=== PATIENT | female | born 1985 | race Caucasian/White ===

== ENCOUNTER 2023-05-26 08:01 | Outpatient (AMB) | payer OTHER, SELFPAY ==
[2023-05-26 08:18] VITALS: BP 90/60; PULSE 81; TEMP 36.8; O2SAT 98; BMI 28.7
--- NOTE | 2023-05-26 08:18 | MHC.OFFWIV ---
Intake Vital Signs 05/26/23 08:18 Height 5 ft 3 in Weight 162 lb BMI 28.7 BP 90/60 Blood Pressure Location Lt brachial Position Sitting Pulse 81 Pulse Source Pulse Oximeter Temp 98.2 F Temp Source Oral Pulse Oximetry (%) 98 Oxygen Delivery Method Room Air Intake Visit Reasons: EST/chills fatigue(lobby masked) Intake Note: Pt is here today c/i chills, fever, bodyaches and sorethroat x2 days Upper Marker Name: vape Allergies scallops Adverse Reaction (Verified 05/26/23 08:52) [facility] Med[facility] List - Last Reconciled 05/26/23 by Eric Amin MD cariprazine (Vraylar) 3 mg PO DAILY clonazepam mg PO divalproex 250 mg PO DAILY lamotrigine 200 mg PO DAILY prazosin 1 mg PO BEDTIME propranolol 10 mg PO BID trazodone 100 mg PO BEDTIME Do you need a note to return to daycare/school/sports/work: Yes HPI EST/chills fatigue(lobby masked) HPI Details Patient presents for a sick visit. Reporting symptoms of sinus congestion, sore throat and difficulty swallowing. Low-grade fever. No family member is sick. No recent travel. Patient reports symptoms of malaise and fatigue. Physical Exam Vital Signs: Last Vital Signs Temp 98.2 F 05/26/23 08:18 Pulse 81 05/26/23 08:18 BP 90/60 05/26/23 08:18 Pulse Ox 98 05/26/23 08:18 Oxygen Delivery Method Room Air 05/26/23 08:18 BMI result Body Mass Index 28.7 Const General: cooperative and healthy appearing Nutritional Appearance: well nourished Orientation/consciousness: patient oriented x3 Limitations: no limitations HEENT Head: Yes normal to inspection Eyes General: appearance normal, both eyes and all related structures Neck Neck: Yes normal visual inspection Chest Chest palpation & inspection: normal palpation of entire chest wall Resp Effort & Inspection: normal respiratory effort Neuro General: patient oriented x3 Results AMB Rapid Strep AMB Rapid Strep Negative Last Edit by Red Hernandez CMA on 05/26/23 08:34 Results Reviewed Results Reviewed: Laboratory Last Values Strep Scn [facility] Clinic Negative 05/26/23 08:26 Assessment & Plan Assessment & Plan (1) Upper respiratory tract infection: Code(s): J06.9 - Acute upper respiratory infection, unspecified Plan: Self-limiting illness. No antibiotics needed. Strep test was negative. Will await COVID testing. Orders: Orders AMB Rapid Strep Screen Today Z13.9 - Encounter for screening, unspecified Coding Level of Care Code Est Pt Level 3 (67593) Diagnoses Upper respiratory tract infection J06.9
== END 2023-05-26 09:07 | disposition home or self-care (01) ==
PROVIDERS: Visit Provider Internal Medicine
DX: J06.9 Acute upper respiratory infection, unspecified (principal); J02.9 Acute pharyngitis, unspecified
CPT/HCPCS: 87880; 99213

== ENCOUNTER 2023-05-26 13:54 | Outpatient (REF) | payer OTHER, SELFPAY ==
[2023-05-26 14:51] LABS: Influenza A PCR NEGATIVE (Negative); Influenza B PCR NEGATIVE (Negative); Resp Syncy Virus RNA Qual PCR NEGATIVE (Negative); SARS COV2 PCR INHOUSE POSITIVE (Negative)
== END 2023-05-26 13:55 | disposition home or self-care (01) ==
LOC: HO.LNP 13:54
PROVIDERS: Visit Provider Internal Medicine
DX: Z11.52 Encounter for screening for COVID-19 (principal); R43.9 Unspecified disturbances of smell and taste; Z20.822 Contact with and (suspected) exposure to COVID-19
CPT/HCPCS: 0241U

== ENCOUNTER 2023-10-06 08:52 | Outpatient (AMB) | payer OTHER, SELFPAY ==
[2023-10-06 09:11] VITALS: BP 112/78; PULSE 65; TEMP 36.6; O2SAT 99; BMI 27.6
--- NOTE | 2023-10-06 09:11 | AM.OFFWIN_ITS ---
Intake Vital Signs 10/06/23 09:11 Height 5 ft 3 in Weight 156 lb BMI 27.6 BP 112/78 Blood Pressure Location Lt brachial Position Sitting Pulse 65 Pulse Source Pulse Oximeter Temp 97.8 F Temp Source Oral Pulse Oximetry (%) 99 Oxygen Delivery Method Room Air Intake Visit Reasons: EP Head Cold, Ear/head ache, nausea (masked) Intake Note: Pt presents to the office today for a sx of a head cold, ear pain,headache, and nausea that started 6 days ago. She states she developed a fever last night as well. Allergies scallops Adverse Reaction (Verified 10/06/23 10:20) [facility] Medication List - Last Reconciled 10/06/23 by DONNY Mello albuterol sulfate 90 mcg/actuation 2 puffs inhalation Q6H PRN azithromycin For 250 mg dose pack: take 500 mg today (day 1), then 250 mg for 4 days (days 2-5) PO cariprazine (Vraylar) 3 mg PO DAILY clonazepam mg PO divalproex 250 mg PO DAILY lamotrigine 200 mg PO DAILY prazosin 1 mg PO BEDTIME propranolol 10 mg PO BID trazodone 100 mg PO BEDTIME Do you need a note to return to daycare/school/sports/work: Yes Return to daycare/school/sports/work/other note: work HPI HPI Comments History of Present Illness Details Patient is a 37-year-old female in for sick visit. Patient states that for the past 6 days she has developed upper respiratory symptoms including headache, cough, ear fullness, sinus tenderness, sore throat, chills. Patient has tried some rvmv-enm-vqhiaep medications with little relief. Denies chest pain, shortness a breath, nausea, vomiting, diarrhea, dizziness. Patient has many sick contacts [facility] Social History (Updated 10/06/23 @ 09:18 by Ora Oseguera MA) Alcohol intake: current Alcohol intake frequency: a few times a month e-Cigarette/Vaping Use: Currently Using Use of substances other than those prescribed or required for medical reasons: No Review of Systems Const All systems reviewed & are unremarkable except as noted in HPI and below Physical Exam Vital Signs: Last Vital Signs Temp 97.8 F 10/06/23 09:11 Pulse 65 10/06/23 09:11 BP 112/78 10/06/23 09:11 Pulse Ox 99 10/06/23 09:11 Oxygen Delivery Method Room Air 10/06/23 09:11 BMI result Body Mass Index 27.6 Vital signs reviewed and stable Const Other: Appearance: Alert.? Oriented X3.? No acute distress.? Head: Normocephalic, atraumatic, no step-offs or deformities Eyes: Pupils equal, round and reactive to light.? ENT: Pharynx erythema. +Sinus tenderness. TM intact and pearly holcomb. Neck: Normal inspection.? Neck supple.? CVS: Normal heart rate and rhythm.? Pulses normal.? Respiratory: No respiratory distress.? Breath sounds normal.? Neuro: Oriented X 3.? No motor deficit.? No sensory deficit. CN 2-12 intact Assessment & Plan Assessment & Plan (1) Sinusitis: Comment: Patient had upper respiratory swab. Will give azithromycin and refill patient's albuterol inhaler at her request Code(s): J32.9 - Chronic sinusitis, unspecified Qualifiers: Chronicity: acute Recurrence: non-recurrent Sinusitis location: unspecified location Qualified Code(s): J01.90 - Acute sinusitis, unspecified Plan: Take your medications as prescribed. If you were prescribed antibiotics today, it is important that you take your medication to their entirety, do not skip any doses, do not finish them early. Follow-up with your primary care provider this week. Return to the emergency department with new or worsening symptoms. Such as fevers, chills, chest pain, shortness of breath, nausea, vomiting, dizziness, headache, vision changes, lethargy In case of emergency call 911 Plan Follow-up with PCP Orders: Orders SARS-CoV2/FLU/RSV Today J06.9 - Acute upper respiratory infection, unspecified Medications: New albuterol sulfate 90 mcg/actuation 2 puffs inhalation Q6H PRN 6.7 grams 0RF shortness of breath or wheezing azithromycin For 250 mg dose pack: take 500 mg today (day 1), then 250 mg for 4 days (days 2-5) PO 6 tabs 0RF Coding Level of Care Code Est Pt Level 3 (21389) Diagnoses Acute non-recurrent sinusitis, unspecified location J01.90 Chronicity: acute Recurrence: non-recurrent Sinusitis location: unspecified location Time Spent (min) 22
== END 2023-10-06 11:30 | disposition home or self-care (01) ==
PROVIDERS: Visit Provider Nurse Practitioner Primary Care
DX: J01.90 Acute sinusitis, unspecified (principal)
CPT/HCPCS: 99213

== ENCOUNTER 2023-10-06 11:43 | Outpatient (REF) | payer OTHER, SELFPAY ==
[2023-10-06 13:05] LABS: Influenza A PCR NEGATIVE (Negative); Influenza B PCR NEGATIVE (Negative); Resp Syncy Virus RNA Qual PCR NEGATIVE (Negative); SARS COV2 PCR INHOUSE NEGATIVE (Negative)
== END 2023-10-06 11:44 | disposition home or self-care (01) ==
LOC: HO.HMGCLNP 11:43
PROVIDERS: Visit Provider Nurse Practitioner Primary Care
DX: J06.9 Acute upper respiratory infection, unspecified (principal)
CPT/HCPCS: 0241U

== ENCOUNTER 2023-12-16 08:22 | Outpatient (AMB) | payer OTHER, SELFPAY ==
[2023-12-16 08:24] VITALS: BP 112/60; PULSE 71; TEMP 36.8; O2SAT 99; BMI 26.4
--- NOTE | 2023-12-16 08:24 | AM.OFFWIN_ITS ---
Intake Vital Signs 12/16/23 08:24 Height 5 ft 3 in Weight 149 lb BMI 26.4 BP 112/60 Blood Pressure Location Rt brachial Position Sitting Pulse 71 Pulse Source Pulse Oximeter Temp 98.3 F Temp Source Oral Pulse Oximetry (%) 99 Oxygen Delivery Method Room Air Intake Visit Reasons: EP ?Strep Throat, Ears clogged and body ache Intake Note: pt here c/o stuffy nose, blocked ears, body aches and sore throat. No fever Patient Tobacco Use Status: Never used Tobacco Allergies scallops Adverse Reaction (Verified 12/16/23 08:33) wilts Do you need a note to return to daycare/school/sports/work: No HPI HPI Comments History of Present Illness Details Patient is a 38-year-old female with no significant past medical history complaining clogged ears, body aches, nasal congestion and is questioning whether she has strep throat. Patient states she had a double ear infection recently but was prescribed a Z-Adan she followed up with her primary is that she still had fluid in her ears and she felt like she did. She states she took some ibuprofen this morning which is helped her throat pain she is also taking daily Maria Teresa. She denies any nausea vomiting diarrhea chest pain or shortness of breath. [facility] Social History (Updated 10/06/23 @ 09:18 by Ora Oseguera CMA) Alcohol intake: current Alcohol intake frequency: a few times a month Patient Tobacco Use Status: Never used Tobacco e-Cigarette/Vaping Use: Currently Using Review of Systems Const All systems reviewed & are unremarkable except as noted in HPI and below Physical Exam Vital Signs: Last Vital Signs Temp 98.3 F 12/16/23 08:24 Pulse 71 12/16/23 08:24 BP 112/60 12/16/23 08:24 Pulse Ox 99 12/16/23 08:24 Oxygen Delivery Method Room Air 12/16/23 08:24 BMI result Body Mass Index 26.4 Const General: cooperative, healthy appearing, comfortable and no acute distress Orientation/consciousness: patient oriented x3 Limitations: no limitations HEENT Head: Yes normal to inspection Ears: external ears normal and TM's normal bilaterally General nose exam: Normal external nose present, Normal nares present and No nasal discharge present Face and sinus: Yes normal facial exam and Yes sinus tenderness Mouth: Normal oral and palatal mucosa present and moist mucous membranes Throat: Yes posterior oropharynx normal Eyes General: appearance normal, both eyes and all related structures Neck Neck: Yes normal visual inspection Resp Effort & Inspection: normal respiratory effort, able to speak in complete sentences, Actively coughing, no respiratory distress, not tachypneic, no tripod positioning and no use of accessory muscles Auscultation: clear to auscultation bilaterally Cardio Rate: regular rate Rhythm: regular rhythm Heart sounds: normal S1 and S2 Skin General skin exam: no rashes or lesions noted Neuro General: patient oriented x3 Extrem General: Yes normal to inspection and Yes no clubbing, cyanosis or edema Results AMB Rapid Strep AMB Rapid Strep Negative Last Edit by Oskar Moore CMA on 12/16/23 08:44 Assessment & Plan Assessment & Plan (1) Sinusitis: Comment: Patient had upper respiratory swab. Will give azithromycin and refill patient's albuterol inhaler at her request Code(s): J32.9 - Chronic sinusitis, unspecified Qualifiers: Sinusitis location: unspecified location Chronicity: acute Recurrence: non-recurrent Qualified Code(s): J01.90 - Acute sinusitis, unspecified Plan: VSS, strep negative, advised pt to treat symptoms with [id number]-vfr-cjvguhl medication as most sinus infections are viral. Plan see above Coding Level of Care Code Est Pt Level 2 (65595) Diagnoses Acute non-recurrent sinusitis, unspecified location J01.90 Sinusitis location: unspecified location Chronicity: acute Recurrence: non-recurrent
== END 2023-12-16 09:18 | disposition home or self-care (01) ==
PROVIDERS: PCP Internal Medicine; Visit Provider Physician Assistant
DX: J01.90 Acute sinusitis, unspecified (principal); Z13.9 Encounter for screening, unspecified
CPT/HCPCS: 87880; 99213

== ENCOUNTER 2024-05-05 08:10 | Outpatient (REF) | payer OTHER, SELFPAY ==
[2024-05-05 12:43] LABS: Adenovirus PCR Not Detected (Not Detect.); Bordetella parapertussis PCR Not Detected (Not Detect.); Bordetella pertussis PCR Not Detected (Not Detect.); Chlamydia pneumoniae PCR Not Detected (Not Detect.); Coronavirus 229E PCR Not Detected (Not Detect.); Coronavirus HKU1 PCR Not Detected (Not Detect.); Coronavirus NL63 PCR Not Detected (Not Detect.); Coronavirus OC43 PCR Not Detected (Not Detect.); Human metapneumovirus PCR Not Detected (Not Detect.); Influenza A PCR Not Detected (Not Detect.); Influenza B PCR Not Detected (Not Detect.); Mycoplasma pneumoniae PCR Not Detected (Not Detect.); Parainfluenza 1 PCR Not Detected (Not Detect.); Parainfluenza 2 PCR Not Detected (Not Detect.); Parainfluenza 3 PCR Not Detected (Not Detect.); Parainfluenza 4 PCR Not Detected (Not Detect.); RSV PCR Not Detected (Not Detect.); Rhino/Enterovirus PCR Not Detected (Not Detect.)
[2024-05-05 12:45] LABS: SARS-CoV-2 PCR Not Detected (Not Detect.)
== END 2024-05-05 08:11 | disposition home or self-care (01) ==
LOC: HO.LAB 08:10
PROVIDERS: PCP Internal Medicine; Visit Provider Physician Assistant
DX: J06.9 Acute upper respiratory infection, unspecified (principal); R05.9 Cough, unspecified
CPT/HCPCS: 87633; 99202

== ENCOUNTER 2024-05-05 08:10 | Outpatient (AMB) | payer OTHER, SELFPAY ==
[2024-05-05 08:15] VITALS: BP 112/78; PULSE 62; TEMP 36.8; O2SAT 98; BMI 24.1
--- NOTE | 2024-05-05 08:15 | AM.OFFWIN_ITS ---
Intake Vital Signs 05/05/24 08:15 Height 5 ft 3 in Weight 136 lb BMI 24.1 BP 112/78 Blood Pressure Location Rt brachial Position Sitting Pulse 62 Pulse Source Pulse Oximeter Temp 98.2 F Temp Source Oral Pulse Oximetry (%) 98 Oxygen Delivery Method Room Air Intake Visit Reasons: EP-fever, body ache, sore throat, sob Intake Note: Patient here for fever, body aches and SOB that has been present for a few days. Patient Tobacco Use Status: Never used Tobacco Allergies scallops Adverse Reaction (Verified 12/16/23 08:33) [facility] HPI Comments History of Present Illness Details Patient is a 38-year-old female complaining of fever with a T-max of 101.3 degrees F, body aches, shortness of breath, sore throat, fatigue and headaches. She tells me she does not have a history of asthma but she was prescribed an inhaler in the past for when she had shortness of breath but she can not find it. She tells me that the apartment they were living in for the past year had black mold and she has been sick on and off with breathing problems for the last year. They just moved out of the apartment 10 days ago. She tells me she also has a history of bipolar disorder so she is unable to take a lot of medications to treat her symptoms so she has just been resting. She denies any sick contacts at home. She did tell me she tested for COVID at home and it was negative. [facility] Social History (Updated 10/06/23 @ 09:18 by Ora Oseguera [facility]) Alcohol intake: current Alcohol intake frequency: a few times a month Patient Tobacco Use Status: Never used Tobacco e-Cigarette/Vaping Use: Currently Using Review of Systems Const All systems reviewed & are unremarkable except as noted in HPI and below Physical Exam Vital Signs: Last Vital Signs Temp 98.2 F 05/05/24 08:15 Pulse 62 05/05/24 08:15 BP 112/78 05/05/24 08:15 Pulse Ox 98 05/05/24 08:15 Oxygen Delivery Method Room Air 05/05/24 08:15 BMI result Body Mass Index 24.1 Const General: cooperative, healthy appearing, comfortable and no acute distress Orientation/consciousness: patient oriented x3 Limitations: no limitations HEENT Head: Yes normal to inspection Ears: hearing grossly normal bilaterally, external ears normal and TM's normal bilaterally General nose exam: Normal external nose present, Normal nares present and No nasal discharge present Face and sinus: Yes normal facial exam and Yes sinuses nontender Mouth: Normal oral and palatal mucosa present and moist mucous membranes Throat: Yes tonsils normal, Yes uvula midline and Yes posterior oropharynx abnormal (Erythema) Eyes General: appearance normal, both eyes and all related structures Neck Neck: Yes normal visual inspection Resp Effort & Inspection: normal respiratory effort, able to speak in complete sentences, no respiratory distress, not tachypneic, no tripod positioning and no use of accessory muscles Auscultation: clear to auscultation bilaterally Cardio Rate: regular rate Rhythm: regular rhythm Heart sounds: normal S1 and S2 Skin General skin exam: no rashes or lesions noted Neuro General: patient oriented x3 Extrem General: Yes normal to inspection and Yes no clubbing, cyanosis or edema Assessment & Plan Assessment & Plan (1) URI (upper respiratory infection): Code(s): J06.9 - Acute upper respiratory infection, unspecified Qualifiers: URI type: unspecified URI Qualified Code(s): J06.9 - Acute upper respiratory infection, unspecified Plan: Vital signs are stable and patient well-appearing, however with her history of living in an apartment with black mold for 1 year, and repetitive breathing issues, I will get a chest x-ray. I also did a respiratory pathogen panel. Refilled Ventolin inhaler. If viral panel is negative, we will likely prescribe an antibiotic. Plan See above Orders: Orders XR chest 2V Today R05.9 - Cough, unspecified Resp Pathogen Panel - [facility] Today J06.9 - Acute upper respiratory infection, unspecified Medications: New albuterol sulfate 90 mcg/actuation (Ventolin HFA) 2 puffs inhalation Q4-6H 8.5 grams 0RF shortness of breath or wheezing Coding Level of Care Code New Pt Level 4 (27953) Diagnoses Upper respiratory tract infection, unspecified type J06.9 URI type: unspecified URI
== END 2024-05-05 09:07 | disposition home or self-care (01) ==
PROVIDERS: PCP Internal Medicine; Visit Provider Physician Assistant
DX: J06.9 Acute upper respiratory infection, unspecified (principal)

== ENCOUNTER 2024-05-05 08:46 | Outpatient (REF) | payer OTHER, SELFPAY ==
--- NOTE | ~2024-05-05 | XR_ITS ---
EXAMINATION: XR CHEST CLINICAL INFORMATION: Cough, unspecified COMPARISON: None available. TECHNIQUE: PA and lateral views of the chest were obtained. FINDINGS: The lungs are well expanded. No focal consolidation, effusion, edema, or pneumothorax. The cardiomediastinal silhouette is within normal limits for technique. No acute osseous abnormality. XR/XR chest 2V IMPRESSION: No acute pulmonary disease. Electronically signed by: Christina Ferrera DO 05/05/2024 12:08 PM EDT
== END 2024-05-05 08:47 | disposition home or self-care (01) ==
LOC: HO.HMGCX 08:46
PROVIDERS: PCP Internal Medicine; Visit Provider Physician Assistant
DX: R05.9 Cough, unspecified (principal)
CPT/HCPCS: 71046

== ENCOUNTER 2024-07-25 08:04 | Outpatient (AMB) | payer OTHER, SELFPAY ==
[2024-07-25 08:06] VITALS: BP 110/60; PULSE 75; TEMP 37.6; O2SAT 99; BMI 25.0
--- NOTE | 2024-07-25 08:06 | MHC.OFFWIV ---
Intake Vital Signs 07/25/24 08:06 Height 5 ft 3 in Weight 141 lb BMI 25.0 BP 110/60 Blood Pressure Location Rt brachial Position Sitting Pulse 75 Pulse Source Pulse Oximeter Temp 99.6 F Temp Source Oral Pulse Oximetry (%) 99 Oxygen Delivery Method Room Air Intake Visit Reasons: EP Sore throat, cold symptoms () Intake Note: Pt is here today c/o S/T and cold sx's: Pt is 6 weeks into her Patient Tobacco Use Status: Never used Tobacco Allergies scallops Adverse Reaction (Verified 07/25/24 08:07) [facility] HPI Comments History of Present Illness Details Patient is a 38-year-old female complaining of 2 days of a sore throat, minor cough and chest congestion. She states she just found out she was and has had a lot of nausea and feeling tired. She has been using cough drops and aspirin daily. She denies any sick contacts. 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 She denies a history of asthma. She denies any shortness of breath, wheezing or fevers. [facility] Social History (Updated 10/06/23 @ 09:18 by Ora Oseguera CMA) Alcohol intake: current Alcohol intake frequency: a few times a month Patient Tobacco Use Status: Never used Tobacco e-Cigarette/Vaping Use: Currently Using Review of Systems Const All systems reviewed & are unremarkable except as noted in HPI and below Physical Exam Vital Signs: Last Vital Signs Temp 99.6 F 07/25/24 08:06 Pulse 75 07/25/24 08:06 BP 110/60 07/25/24 08:06 Pulse Ox 99 07/25/24 08:06 Oxygen Delivery Method Room Air 07/25/24 08:06 BMI result Body Mass Index 25.0 Results AMB Rapid Strep AMB Rapid Strep Negative Last Edit by Lenore Jessica CMA on 07/25/24 08:22 Assessment & Plan Assessment & Plan (1) URI (upper respiratory infection): Code(s): J06.9 - Acute upper respiratory infection, unspecified Qualifiers: URI type: unspecified URI Qualified Code(s): J06.9 - Acute upper respiratory infection, unspecified Plan: Vital signs are stable, patient is well-appearing and physical exam is unremarkable. Rapid strep was negative in the office and no exudates on exam. Did test for flu COVID and RSV. Recommended mfrb-skf-pxnskin medications that are safe for as well as rest and hydration. Orders: Orders SARS-CoV2/FLU/RSV Today J06.9 - Acute upper respiratory infection, unspecified Coding Level of Care Code New Pt Level 3 (31710) Diagnoses Upper respiratory tract infection, unspecified type J06.9 URI type: unspecified URI
== END 2024-07-25 08:55 | disposition home or self-care (01) ==
PROVIDERS: PCP Internal Medicine; Visit Provider Physician Assistant
DX: J06.9 Acute upper respiratory infection, unspecified (principal)

== ENCOUNTER 2024-07-25 08:04 | Outpatient (REF) | payer OTHER, SELFPAY ==
[2024-07-25 11:13] LABS: Influenza A PCR NEGATIVE (Negative); Influenza B PCR NEGATIVE (Negative); Resp Syncy Virus RNA Qual PCR NEGATIVE (Negative); SARS COV2 PCR INHOUSE NEGATIVE (Negative)
== END 2024-07-25 08:05 | disposition home or self-care (01) ==
LOC: HO.LAB 08:04
PROVIDERS: PCP Internal Medicine; Visit Provider Physician Assistant
DX: J06.9 Acute upper respiratory infection, unspecified (principal)
CPT/HCPCS: 0241U; 87880; 99212

== ENCOUNTER 2024-09-12 15:47 | Outpatient (AMB) | payer OTHER, SELFPAY ==
[2024-09-12 15:52] VITALS: BP 130/80; PULSE 86; TEMP 36.7; O2SAT 97; BMI 26.7
--- NOTE | 2024-09-12 15:52 | AM.OFFWIN_ITS ---
Intake Vital Signs 09/12/24 15:52 Height 5 ft 3 in Weight 151 lb BMI 26.7 BP 130/80 Blood Pressure Location Rt brachial Position Sitting Pulse 86 Pulse Source Pulse Oximeter Temp 98.1 F Temp Source Oral Pulse Oximetry (%) 97 Oxygen Delivery Method Room Air Intake Visit Reasons: EP cold/flu symtoms Intake Note: Patient here for congestion, headache, chills that has been present since Thursday. Pt is 13 weeks . Patient Tobacco Use Status: Never used Tobacco Allergies scallops Adverse Reaction (Verified 09/12/24 16:00) wilts Do you need a note to return to daycare/school/sports/work: No HPI HPI Comments History of Present Illness Details 38 y/o female patient who presents to [facility] walk in clinic with c/o URI symptoms since Thursday. Pt is 13 weeks . 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 [facility] Medical History (Updated 09/12/24 @ 16:07 by Senait York NP) Acute respiratory disease Social History (Updated 10/06/23 @ 09:18 by Ora Oseguera CMA) Alcohol intake: current Alcohol intake frequency: a few times a month Patient Tobacco Use Status: Never used Tobacco e-Cigarette/Vaping Use: Currently Using Review of Systems Const All systems reviewed & are unremarkable except as noted in HPI and below Physical Exam Vital Signs: Last Vital Signs Temp 98.1 F 09/12/24 15:52 Pulse 86 09/12/24 15:52 BP 130/80 09/12/24 15:52 Pulse Ox 97 09/12/24 15:52 Oxygen Delivery Method Room Air 09/12/24 15:52 BMI result Body Mass Index 26.7 Const General: cooperative and no acute distress Orientation/consciousness: patient oriented x3 HEENT Head: Yes normocephalic Ears: external ears normal and TM abnormal with fluid behind the TM bilateral General nose exam: No nasal discharge present Face and sinus: Yes sinuses nontender Mouth: moist mucous membranes Throat: Yes uvula midline Resp Effort & Inspection: normal respiratory effort and able to speak in complete sentences Auscultation: clear to auscultation bilaterally, no crackles, no rales, no rhonchi and no wheezes Cardio Heart sounds: S1 normal heart sound present and S2 normal heart sound present Neuro General: patient oriented x3 Assessment & Plan Assessment & Plan (1) Acute respiratory disease: Code(s): J06.9 - Acute upper respiratory infection, unspecified Plan: Ordered SARs OTC cold/Flu remedies Rest and hydrate well Acetaminophen for pain relief. Orders: Orders SARS-CoV2/FLU/RSV Today J06.9 - Acute upper respiratory infection, unspecified Coding Level of Care Code Est Pt Level 4 (83655) Diagnoses Acute respiratory disease J06.9 Time Spent (min) 20
--- OUTSIDE RECORDS SUMMARY | 2024-09-12 18:33 | XMS_ITS ---
Author Organization [facility] [place] [address] Care Team Providers Care Clinic [facility] Associate Name Role Phone Elsy Cabral Primary Care Provider Bryce Ribeiro [phone] Medications Medication SIG (Take, Route, Frequency, Duration) Notes Start Date End Date Status clonazePAM 1 MG 1/2 tablet in the morning, and 1 tablet midday, and 1 tablet in the evening Orally As directed for 90 days Going up in dose. 04/24/2023 Active Encounters Encounter Location Date Provider Diagnosis [facility] [address] [place] [id number] 04/24/2023 Bryce Ribeiro Bipolar 1 disorder F31.9 Assessments Encounter Date Diagnosis (ICD Code) Assessment Notes Treatment Notes Treatment Clinical Notes Section Notes 04/24/2023 Bipolar 1 disorder (ICD-10 - F31.9) Plan Of Treatment Medication Medication Name Sig Start Date Stop Date Notes clonazePAM 1 MG 1/2 tablet in the mo rning, and 1 tablet midday, and 1 tablet in the evening Orally As directed for 90 days 04/24/2023 Going up in dose. Progress Notes * Krysta NELSON EDOB: [id number] (37 yo F)Acc No.[id number]:04/24/2023 Patient:?Krysta Nelson :1985???Age:37 Y???Sex:Female Address:[address] [id number] * Refills? Refill clonazePAM Tablet, 1 MG, Orally, 270, 1/2 tablet in the morning, and 1 tablet midday, and 1 tablet in the evening, As directed, 90 days, Refills=0 * true * Date:? Generated for Vamshi damico/Roc/Claritaitting on:?09/12/2024 06:33 PM EST
--- OUTSIDE RECORDS SUMMARY | 2024-09-12 18:33 | XMS_ITS | Encounter Summary ---
Author Organization [facility] [place] [address] Care Team Providers Care Masticator Name Role Phone Catherine Jamison MD Primary Care Provider [phone] Encounter Details Date Type Department Care Team ([facility] st Contact Info) Description 09/01/2024 Telephone Obstetrics and Gynecology - [place] [address] [place] [id number] Marium Jackson MA Social History Tobacco Use Types Packs/Day Years Used Date Smoking Tobacco: Former Cigarettes Smokeless Tobacco: Never Alcohol Use Standard Drinks/Week Comments Not Currently 0 (1 standard drink = 0.6 oz pur e alcohol) Comments Yes Sex and Gender Information Value Date Recorded Sex Assigned at Not on file Legal Sex Female 3:35 AM EST Gender Identity Not on file Sexual Orientation Not on file 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 Patient alreadly know the sex of the baby. * Marium Jackson MA - 09/01/2024 3:43 PM EST ----- Message from Jenny Hodge CNM sent at 09/01/2024 1:53 PM EST ----- Pls call pt to let her know that her Panorama was low-risk. If she would like to know the baby's sex, it is male documented in this encounter Plan of Treatment Upcoming Encounters Date Type Department Care Team (Late st Contact Info) Description 10/27/2024 11:00 AM EDT Office Visit Adult Medicine [address] [phone] Catherine Jamison MD [address] [place] [address] documented as of this encounter Visit Diagnoses Not on filedocumented in this encounter Care Teams Masticator Relationship Specialty Start Date End Date Catherine Jamison MD [address] [place] [phone] PCP - General Internal Medicine 07/15/24 documented as of this encounter
--- OUTSIDE RECORDS SUMMARY | 2024-09-12 18:33 | XMS_ITS | Clinical Summary ---
Author Organization [facility] [address] [facility] lding Address [address] [place] [address] Phone Care Team Providers Care Surface Miner Name Role Phone Catherine Jamison MD Primary Care Provider [phone] Allergies Active Allergy Reactions Criticality Noted Date Comments Food Allergy Formula Anaphylaxis High 06/17/2023 Scallops, Medications busPIRone (BUSPAR) 10 mg tablet Take 1 Tablet by mouth at bedtime. Active cariprazine (Vraylar) 3 mg capsule Take by mouth. Activ e clonazePAM (KlonoPIN) 1 mg tablet TAKE 1/2 TABLET BY MOUTH IN THE MORNING AND 1 TABLET IN THE AFTERNOON AND AT BEDTIME 4 Active divalproex (DEPAKOTE) [address] tablet Take 1 tablet (250 mg total) by mouth at bedtime. 4 Active lamoTRIgine (LaMICtal) 200 mg tablet Take 1 tablet (200 mg total) by mouth 1 (one) time each day. Active prazosin (MINIPRESS) 1 mg capsule Take 1 Capsule by mouth at bedtime. Active traZODone (DESYREL) 100 mg tablet Take 1 Tablet by mouth at bedtime. Active albuterol HFA (Ventolin HFA) 90 mcg/actuation inhaler INHALE 2 PUFFS EVERY 6 HOURS NEEDED FOR SHORTNESS OF BREATH OR WHEEZING 4 Active omeprazole (PriLOSEC) [address] capsule Take 1 capsule (40 mg total) by mouth 1 (one) time each day. 8 Active hydrOXYzine HCL (ATARAX) 25 mg tablet Take 1 tablet (25 mg total) by mouth 2 (two) times a day. 4 Active hydrOXYzine pamoate (VISTARIL) 100 mg capsule Take 1 capsule (100 mg total) by mouth. at bedtime 4 Active lurasidone (LATUDA) 80 mg tablet Take 0.5 tablets (40 mg total) by mouth daily. Active clonazePAM (KlonoPIN) 0.5 mg tablet Take 1 tablet (0.5 mg total) by mouth 3 times daily. Max Daily Amount: 1.5 mg Active lamoTRIgine (LaMICtal) 150 mg tablet Take 200 mg by mouth 1 (one) time each day. Active aspirin 81 mg EC tabletIndication s:Encounter for supervision of normal first in first trimester Take 2 tablets (162 mg total) by mouth 1 (one) time each day. 180 each 1 5 01/19/20 25 Active Active Problems Problem Noted Date Diagnosed Date GBS bacteriuria 08/25/2024 Overview (08/25/2024): <1K in IP urine culture IP prohylaxis Bipolar 1 disorder 06/23/2024 Overview (06/23/2024): behavioral health through [facility], [place]; Edie Lyons (psych) GERD (gastroesophageal reflux disease) IBS (irritable bowel syndrome) 06/23/2024 PUD (peptic ulcer disease) 06/23/2024 Generalized anxiety disorder 09/16/2023 Pelvic pain 08/07/2020 Overview (06/23/2024): Last Assessment & Plan: Discussed with patient that we should repeat US to evaluate for recurrent cyst. No evidence of acute torsion today, but could be intermittent again. Given warning signs. Could also just be Mittelschmerz or some scar tissue from previous surgery. I encouraged her to consider a combined OPC or higher dose progestin to suppress cyst formation. She has no contraindications after review of her history. She was informed of low, but increased risk of VTE. She was open to this option. She will follow up in 3 months and we will discuss US results when available. Ovarian torsion 03/20/2020 Overview (06/23/2024): 02/2020- s/p left ovarian cystectomy Eppsteiner, large ~ 6 cm follicular cyst and evidence of vascular congestion c/w torsion Acne 10/31/2019 Migraines 04/27/2018 Atypical squamous cell vega es of undetermined significance (ASCUS) on cervical cytology with positive high risk human papilloma virus (HPV) 12/28/2017 Overview (07/15/2024): Pos 16; colpo December 2017 History of drug abuse 10/07/2017 Resolved Problems Problem Noted Date Diagnosed Date Resolved Date Primigravida of advanced mat ernal age in first trimester 07/22/2024 09/05/2024 Overview (07/22/2024): ASA 162 mg daily at 12w through delivery Referral for NIPT if desired Detailed US 3rd trimester growth US if maternal age 40 or greater Weekly NST at 36 weeks Offer delivery at 39 weeks if maternal age 40 or greater Marijuana smoker 07/22/2024 09/05/2024 Overview (07/22/2024): Stopped with + preg test-aware of UDS Encounter for supervision of normal first in first trimester 07/20/2024 09/05/2024 Overview (09/01/2024): 1. [facility] site: [facility]: [address] [place] [address] ([phone]) 2. Delivery site: [facility] 3. Mobile Mommas: No 4. Dating criteria: LMP 5. Blood type: O+ 6. Genetic screening: Panorama: low-risk male Horizon: neg Nuchal: Ordered Survey: MSAFP: 6. GBS: Date: 7. FOB name: Enrique 8. Plans A. Epidural or other pain management - B. Labor support identified - C. Tdap - Date: Flu - Date: D. Breast or Bottle feed: Bottle feeding E. Baby's name - F. Circumcision - 9. Hospital Course: Encounters Date Type Department Care Team Description 09/05/2024 Telephone Obstetrics [place] [address] Melinda Hodge CNM transfer care 09/01/2024 Telephone Obstetrics and Gynecology [address] [phone] [place] 08/12/2024 Telephone Obstetrics and Gynecology [address] [phone] Melinda Hodge CNM Problem 08/09/2024 Telephone Obstetrics and Gynecology - [address] [phone] Melinda Hodge CNM 08/03/2024 Telephone Obstetrics and Gynecology [address] [phone] Melinda Hodge CNM Transitional Care Management; Incoming Call 07/22/2024 3:00 PM EST Clinical Support Obstetrics and [address] [phone] Encounter for supervision of normal first in first trimester (Primary Dx); Primigravida of advanced maternal age in first trimester; Marijuana smoker 07/15/2024 1:00 PM EST Clinical Support Obstetrics and [address] [phone] Irregular periods (Primary Dx) 07/08/2024 Telephone Adult Medicine [address] [phone] Catherine Jamison MD lab request from Last 3 Months Immunizations Name Administration Dates Next Due Pfizer SARS-CoV-2 COVID-19, mRNA, LNP-S, preservative free 07/25/2021,12/22/2020,12/01/2020 Tdap Tetanus diptheria acell ular pertussis (Boostrix; Adacel) 7yo and older 03/25/2021 Surgical History Surgery Date Site/Laterality Comments COLONOSCOPY PROCEDURE: HISTORICAL COLONOSCOPY OTHER SURGICAL HISTORY PROCEDURE: VT ESOPHAGOSCOPY FLEXIBLE TRANSORAL DIAGNOSTIC WISDOM TOOTH EXTRACTION PROCEDURE: HISTORICAL WISDOM TEETH EXTRACTION UPPER GASTROINTESTINAL ENDOSCOPY 12/08/2018 PROCEDURE: UPPER GI ENDOSCOPY/EXAM; COMMENT: negative, biopsy pending OVARIAN CYST REMOVAL 02/2020 PROCEDURE: VT OVARIAN CYSTECTOMY UNI/BI; COMMENT: laparoscopic, Eppsteiner, large follicular cyst and torsion Medical History Medical History Date Comments GERD (gastroesophageal reflu x disease) DX:GERD (gastroesophageal re flux disease) PUD (peptic ulcer disease) DX:PU D (peptic ulcer disease) IBS (irritable bowel syndrome) D X:IBS (irritable bowel syndrome) Bipolar 1 disorder (CMS/HCC) DX: Bipolar 1 disorder (HCC); COMMENT: behavioral health through [facility]; Edie Lyons (psych) Migraines 04/27/2018 DX:Migraines Family History Medical History Relation Name Comments COPD Aunt maternal Alcohol abuse Father Alcohol/Drug Father DARBY disease Father Bipolar disorder Father's side Heart attack Maternal Grandmother Obesity Maternal Grandmother Alcohol abuse Mother Other: anxiety Mother Coronary artery disease Mother's side COPD Paternal Grandfather Lung cancer Paternal Grandfather Heart attack Uncle maternal Breast cancer Neg Hx Colon cancer Neg Hx Ovarian cancer Neg Hx Pancreatic cancer Neg Hx Prostate cancer Neg Hx Uterine cancer Neg Hx Relation Name Status Comments Aunt Brother Alive Father Alive Father's side Maternal Grandmother (Age 57) Mother Alive Mother's side Paternal Grandfather Alive Paternal Grandmother Alive Sister Alive Uncle Social History Tobacco Use Types Packs/Day Years Used Date Smoking Tobacco: Former Cigarettes Smokeless Tobacco: Never Tobacco Cessation:Counseling Given: Not Answered Alcohol Use Standard Drinks/Week Comments Not Currently 0 (1 standard drink = 0.6 oz pur e alcohol) Comments No Sex and Gender Information Value Date Recorded Sex Assigned at Not on file Legal Sex Female 3:35 AM EST Gender Identity Not on file Sexual Orientation Not on file 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 on file Not on file Not on file Obstetrics History Para Term AB IAB SAB Ectopic Multiple Livin g Live Births 1 Date Outcome GA Total Labor Labor/2nd/3rd Weight Sex Type Anes PTL Frieda A1 A5 Name Clin Last Filed Vital Signs Vital Sign Reading Time Taken Comments Blood Pressure 98/74 04/05/2024 2:08 PM EDT Pulse 78 04/05/2024 2:08 PM EDT Temperature - - Respiratory Rate - - Oxygen Saturation - - Inhaled Oxygen Concentration - - Weight 64 kg (141 lb) 07/22/2024 2:49 PM EST Height 160 cm (5' 3 ) 07/22/2024 2:49 PM EST Body Mass Index 24.98 07/22/2024 2:49 PM EST Plan of Treatment Upcoming Encounters Date Type Department Care Team (Late st Contact Info) Description 10/27/2024 11:00 AM EDT Office Visit Adult Medicine [facility] [place] [address] [place] [address] Catherine Jamison MD [address] [place] [phone] Health Maintenance Due Date Last Done Comments Hepatitis B Vaccines (1 of 3 - 19+ 3-dose series) 11/21/2006 Depression Screening 06/15/2022 Social Influencers of Health Screening 06/15/2022 Cervical Cancer Screening: HPV 04/02/2026 04/02/2021 Cholesterol Screening (Lipid Panel) 04/05/2029 04/05/2024, 04/05/2024 DTaP,Tdap,and Td Vaccines (2 - Td or Tdap) 03/25/2031 03/25/2021 Influenza Vaccine Completed 04/06/2024 COVID-19 Vaccine Completed 04/24/2024, , 12/22/2020, Additional history exists HIV Screening Completed 08/22/2024 Hepatitis C Screening Completed 08/22/2024 HIB Vaccines Aged Out No longer eligi ble based on patient's age to complete this topic HPV Vaccines Aged Out No longer eligi ble based on patient's age to complete this topic Hepatitis A Vaccines Aged Out No long er eligible based on patient's age to complete this topic IPV Vaccines Aged Out No longer eligi ble based on patient's age to complete this topic MMR Vaccines Aged Out No longer eligi ble based on patient's age to complete this topic Meningococcal ACWY Vaccine Aged Out N o longer eligible based on patient's age to complete this topic Meningococcal B Vacine Aged Out No lo nger eligible based on patient's age to complete this topic Pneumococcal Vaccine: Pediatrics (0 to 5 Years) and At-Risk Patients (6 to 64 Years) Aged Out No longer eligible based on patient's age to complete this topic RSV Immunization Patients Under 20 months Aged Out No longer eligible based on patient's age to complete this topic Varicella Vaccines Aged Out No longer eligible based on patient's age to complete this topic Procedures Procedure Name Priority Date/Time Associated Diagnosis Comments HORIZON 14, DAYRON Routine 08/31/2024 3: 51 PM EST HORIZON 14, DAYRON Routine 08/31/2024 9: 10 AM EST PANORAMA TEST Routine 11:58 AM EST CBC WITH AUTO DIFFERENTIAL Routine 08/22/2024 10:35 AM EST Encounter for supervision of normal first in first trimester VENIPUNCTURE CHARGE Routine 08/22/2024 1 0:35 AM EST Encounter of female for testing for genetic disease carrier status for procreative management Supervision of elderly primigravida in first trimester HEPATITIS B SURFACE ANTIGEN WITH CONFIRMATION Routine 08/22/2024 10:35 AM EST Encounter for supervision of normal first in first trimester VARICELLA ZOSTER ANTIBODY IGG Routine 08/22/2024 10:35 AM EST Encounter for supervision of normal first in first trimester TREPONEMA PALLIDUM ANTIBODY WITH REFLEX TO RPR AND PARTICLE AGGLUTINATION Routine 08/22/2024 10:35 AM EST Encounter for supervision of normal first in first trimester RUBELLA ANTIBODY IGG Routine 08/22/2024 10:35 AM EST Encounter for supervision of normal first in first trimester HIV 1, 2 ANTIBODY, P24 ANTIGEN WITH REFLEX TO DIFFERENTIATION Routine 08/22/2024 10:35 AM EST Encounter for supervision of normal first in first trimester HEPATITIS C ANTIBODY Routine 08/22/2024 10:35 AM EST Encounter for supervision of normal first in first trimester DRUG ABUSE SCREEN EXPANDED WITH REFLEX CONFIRMATION, URINE Routine 08/22/2024 10:35 AM EST Encounter for supervision of normal first in first trimester CBC AND DIFFERENTIAL Routine 08/22/2024 10:35 AM EST Encounter for supervision of normal first in first trimester TYPE AND SCREEN Routine 08/22/2024 10:35 AM EST Encounter for supervision of normal first in first trimester CULTURE URINE Routine 08/22/2024 10:35 AM EST Encounter for supervision of normal first in first trimester POC , URINE DIAGNOSTIC Routine 07/15/2024 1:29 PM EST Irregular periods LIPID PANEL Routine 04/05/2024 HM HPV Routine 04/02/2021 from Last 3 Months or Most Recently Relevant to Health Maintenance Results * Horizon 14 (08/31/2024 3:51 PM EST) Only the most recent of2 resultswithin the time period is included. Blood Venous blood specimen / Unknown us Melinda Hodge [facility] BLOOD ORDERABLES Final Result * Panorama test (08/26/2024 11:58 AM EST) Blood Venous blood specimen / Unknown Melinda Hodge [facility] BLOOD ORDERABLES Final Result * Hepatitis C antibody (08/22/2024 10:35 AM EST) Hepatitis C Antibody Negative Negative LAB CHEMISTRY METHOD 08/22/2024 12:49 PM EST [facility] Blood Venous blood specimen / Unknown Venipuncture / Unknown 08/22/2024 10:35 AM EST 08/22/2024 10:35 AM EST [facility] BLOOD ORDERABLES Final Result [facility] [address] [place] [address], [place] [phone] * HIV 1,2 antibody, p24 antigen with reflex to differentiation (08/22/2024 10:35 AM EST) HIV Combo AB/AG Negative Negative LAB CHEMISTRY METHOD 08/22/2024 12:50 PM EST [facility] Blood Venous blood specimen / Unknown Venipuncture / Unknown 08/22/2024 10:35 AM EST 08/22/2024 10:35 AM EST [facility] - 08/22/2024 12:50 PM EST This assay is a 4th generation assay allowing for earlier detection of HIV infection by detecting the presence of the HIV-1 p24 antigen as well as the traditional antibodies to HIV type 1 (including group O) and type 2. ??Use of a 4th generation assay is the current CDC recommendation for HIV screening. us Melinda HOLLIS LAB BLOOD ORDERABLES Final Result Performing Organization Address [facility] Co de Phone Number [facility] [address] [place] [address], [place] [phone] * Hepatitis B surface antigen with reflex to confirmation (08/22/2024 10:35 AM EST) Hepatitis B Surface Ag Negative Negative LAB CHEMISTRY METHOD 08/22/2024 12:22 PM EST [facility] Blood Venous blood specimen / Unknown Venipuncture / Unknown 08/22/2024 10:35 AM EST 08/22/2024 10:35 AM EST Narrative [facility] - 08/22/2024 12:22 PM EST Over the counter supplements containing high doses of biotin may interfere with this assay. ??If interference is suspected, patients shoud be retested after refraining from biotin supplements for 72 hours. us Melinda Hodge [facility] BLOOD ORDERABLES Final Result Performing Organization Address [facility]/ZIP Co de Phone Number [facility] [address] [place] [address], * Treponema pallidum antibody with reflex to RPR and particle agglutination (08/22/2024 10:35 AM EST) T. Pallidum Antibodies Negative Negative LAB CHEMISTRY METHOD 08/22/2024 12:21 PM [facility] Blood Venous blood specimen / Unknown Venipuncture / Unknown 08/22/2024 10:35 AM EST 08/22/2024 10:35 AM EST [facility] BLOOD ORDERABLES Final Result Performing Organization Address [facility] Co de Phone Number [facility] [address] [place] [address], * Venipuncture charge (08/22/2024 10:35 AM EST) Pathologist [facility] Extra Tube Hold for add-ons. 08/22/2024 12:01 PM EST [facility] ([place]) Comment:Auto resulted. Blood Venous blood specimen / Unknown Venipuncture / Unknown 08/22/2024 10:35 AM EST 08/22/2024 10:35 AM EST [facility] BLOOD ORDERABLES Final Result Performing Organization Address City/[facility]/ZIP Co de Phone Number [facility] ([place]) [place], * Drug abuse screen expanded with reflex confirmation, urine (08/22/2024 10:35 AM EST) Amphetamine Screen, Ur Negative Negative LAB CHEMISTRY METHOD 08/22/2024 12:46 PM EST [facility] Comment:Certain OTC medicati ons containing ephedrine, phenylephrine, pseudoephedrine and phenylpropanolamine can cause false positive results. Barbiturate Screen, Ur Negative Negative LAB CHEMISTRY METHOD 08/22/2024 12:46 PM [facility] Benzodiazepine Screen, Ur Negative Negative LAB CHEMISTRY METHOD 08/22/2024 12:46 PM [facility] Cocaine Screen, Ur Negative Negative LAB CHEMISTRY METHOD 08/22/2024 12:46 PM [facility] Opiate Screen, Ur Negative Negative LAB CHEMISTRY METHOD 08/22/2024 12:46 PM [facility] Cannabinoid (THC) Screen, Ur Negative Negative LAB CHEMISTRY METHOD 08/22/2024 12:46 PM [facility] Comment:Specimens from patie nts taking pantoprazole sodium (Protonix) have been shown to produce false positive results. Fentanyl, Ur Negative Negative LAB CHEMISTRY METHOD 08/22/2024 12:46 PM [facility] Oxycodone Screen, Ur Negative Negative LAB CHEMISTRY METHOD 08/22/2024 12:46 PM [facility] Urine Urine specimen obtained by clean catch procedure / Unknown Non-blood Collection / Unknown 08/22/2024 10:35 AM EST 08/22/2024 10:35 AM EST [facility] - 08/22/2024 12:46 PM EST Assay cutoffs: Amphetamines ? 1000 ng/mL Barbiturates ?200 ng/mL Benzodiazepines ?? 200 ng/mL Cocaine ? 300 ng/mL Fentanyl ?1 ng/mL Opiates ? 300 ng/mL Oxycodone ? 100 ng/mL THC ?50 ng/mL Semi-quantitative assay for screening purposes only. Unconfirmed screening result should not be used for non-medical purposes. *POSITIVE RESULTS ARE AUTOMATICALLY SENT FOR ALTERNATE METHOD CONFIRMATION* Melinda Hodge [facility] URINE ORDERABLES Final Result [facility] [address] [place] [address], * (ABNORMAL) CBC auto differential (08/22/2024 10:35 AM EST) [facility] Signature WBC 8.8 4.8 - 10.8 K/mcL LAB HEMETOLOGY METHOD 08/22/2024 11:31 AM EST [facility] RBC 4.30 3.80 - 4.80 M/mcL LAB HEMETOLOGY METHOD 08/22/2024 11:31 AM EST [facility] Hemoglobin 13.3 11.5 - 16.0 g/dL LAB HEMETOLOGY METHOD 08/22/2024 11:31 AM [facility] Hematocrit 40.3 35.0 - 47.0 % LAB HEMETOLOGY METHOD 08/22/2024 11:31 AM [facility] MCV 94.2 79.0 - 98.0 FL LAB HEMETOLOGY METHOD 08/22/2024 11:31 AM EST [facility] MCH 31.1 27.0 - 32.0 pcg LAB HEMETOLOGY METHOD 08/22/2024 11:31 AM [facility] MCHC 33.0 32.0 - 37.0 g/dL LAB HEMETOLOGY METHOD 08/22/2024 11:31 AM EST [facility] RDW 12.9 11.0 - 15.0 % LAB HEMETOLOGY METHOD 08/22/2024 11:31 AM [facility] Platelets 249 130 - 400 K/mcL LAB HEMETOLOGY METHOD 08/22/2024 11:31 AM [facility] MPV 9.7 7.0 - 11.0 FL LAB HEMETOLOGY METHOD 08/22/2024 11:31 AM [facility] NRBC 0.0 <1.0 % LAB HEMETOLOGY METHOD 08/22/2024 11:31 AM [facility] NRBC Absolute 0.00 <0.10 K/mcL LAB HEMETOLOGY METHOD 08/22/2024 11:31 AM [facility] Neutrophils Relative 74.8 % LAB HEMETOLOGY METHOD 08/22/2024 11:31 AM [facility] Lymphocytes Relative 17.2 % LAB HEMETOLOGY METHOD 08/22/2024 11:31 AM [facility] Monocytes Relative 5.1 % LAB HEMETOLOGY METHOD 08/22/2024 11:31 AM [facility] Eosinophils Relative 1.6 % LAB HEMETOLOGY METHOD 08/22/2024 11:31 AM [facility] Basophils Relative 0.5 % LAB HEMETOLOGY METHOD 08/22/2024 11:31 AM [facility] Immature Granulocytes Relative 0.8 % LAB HEMETOLOGY METHOD 08/22/2024 11:31 AM [facility] Neutrophils Absolute 6.58 1.50 - 7.00 K/mcL LAB HEMETOLOGY METHOD 08/22/2024 11:31 AM [facility] Lymphocytes Absolute 1.51 1.00 - 5.00 K/mcL LAB HEMETOLOGY METHOD 08/22/2024 11:31 AM [facility] Monocytes Absolute 0.45 0.20 - 1.00 K/mcL LAB HEMETOLOGY METHOD 08/22/2024 11:31 AM [facility] Eosinophils Absolute 0.14 0.00 - 0.50 K/mcL LAB HEMETOLOGY METHOD 08/22/2024 11:31 AM [facility] Basophils Absolute 0.04 0.00 - 0.20 K/mcL LAB HEMETOLOGY METHOD 08/22/2024 11:31 AM [facility] Immature Granulocytes Absolute 0.07(H) 0.00 - 0.03 K/mcL LAB HEMETOLOGY METHOD 08/22/2024 11:31 AM EST [facility] Blood Venous blood specimen / Unknown Venipuncture / Unknown 08/22/2024 10:35 AM EST 08/22/2024 10:35 AM EST Melinda Velásquezdainalidia [facility] BLOOD ORDERABLES Final Result Performing Organization Address City/[facility]/ZIP Co de Phone Number [facility] [address] [place] [address], [place] [phone] * Rubella antibody IgG (08/22/2024 10:35 AM EST) Rubella IgG Quant 20.8 >=10.0 I Unit/mL LAB CHEMISTRY METHOD 08/22/2024 12:27 PM EST [facility] Rubella IgG Antibody Interp Positive Positive LAB CHEMISTRY METHOD 08/22/2024 12:27 PM EST [facility] Blood Venous blood specimen / Unknown Venipuncture / Unknown 08/22/2024 10:35 AM EST 08/22/2024 10:35 AM EST [facility] [place] 2[facility] LAB BLOOD ORDERABLES Final Result Performing Organization Address [facility]/ZIP Co de Phone Number [facility] [address] [place] [address], * Type and screen (08/22/2024 10:35 AM EST) ABO Group O 08/22/2024 12:27 PM EST [facility] Rh Type Positive 08/22/2024 12:27 PM EST [facility] Antibody Screen Negative 08/22/2024 12:27 PM EST [facility] Blood Venous blood specimen / Unknown Venipuncture / Unknown 08/22/2024 10:35 AM EST 08/22/2024 10:35 AM EST us Melinda Hodge [facility] BLOOD BANK TEST ORDERAB LES Final Result Performing Organization Address [facility] de Phone Number [facility] [address] [place] [address], [place] [phone] * Culture urine (08/22/2024 10:35 AM EST) Urine Urine specimen obtained by clean catch procedure / Unknown Non-blood Collection / Unknown 08/22/2024 10:35 AM EST 08/22/2024 10:35 AM EST Narrative [facility] - 08/24/2024 12:41 PM EST COLONY COUNT: ??<1,000 CFU/ML Beta Strep Group B noted. The presence of a low colony count of Beta Strep Group B may have clinical significance in women. us Melinda Hodge [facility] MICROBIOLOGY - GENERAL ORDERABLES Final Result Performing Organization Address [facility] de Phone Number [facility] [address] [place] [address], [place] [phone] * Varicella zoster antibody IgG (08/22/2024 10:35 AM EST) Varicella IgG Positive Positive LAB CHEMISTRY METHOD 08/22/2024 1:45 PM EST [facility] Varicella Zoster IgG 5.15 >=1.00 S/CO LAB CHEMISTRY METHOD 08/22/2024 1:45 PM EST [facility] Blood Venous blood specimen / Unknown Venipuncture / Unknown 08/22/2024 10:35 AM EST 08/22/2024 10:35 AM EST Narrative [facility] - 08/22/2024 1:45 PM EST Interpretation >= 1.00 S/CO is considered to be consistent with Immunity us Melinda [facility] LAB BLOOD ORDERABLES Final Result Performing Organization Address [facility]/State/ZIP Co de Phone Number [facility] [address] [place] [address], * (ABNORMAL) POC , urine manually resulted (07/15/2024 1:29 PM EST) [facility] HCG, Ur POC Positive(A ) Negative POC hCG Int QC Pass? Yes Yes Urine Urine specimen obtained by clean catch procedure / Unknown 07/15/2024 1:29 PM EST Martine HOLLIS POINT OF CARE TEST ENTER/ED IT ORDERABLES Final Result * Lipid panel (04/05/2024) [facility] LDL/HDL Ratio 2 0 - 4 Triglycerides 106 0 - 150 mg/dL Cholesterol 187 0 - 200 mg/dL HDL 79 >=40 mg/dL LDL Cholesterol 87 0 - 100 mg/dL Blood Venous blood specimen / Unknown Historical Provider LAB BLOOD ORDERABLES Parris l Result * Cervical Cancer Screening: HPV (04/02/2021) [facility] Cervical Cancer Screening: HPV negative, abstracted Historical Provider HEALTH MAINTENANCE Final Result from Last 3 Months or Most Recently Relevant to Health Maintenance Insurance [facility] Care Teams Surface Miner Relationship Specialty Start Date End Date Catherine Jamison MD [address] [place] [id number] PCP - General Internal Medicine 07/15/24
--- OUTSIDE RECORDS SUMMARY | 2024-09-12 18:33 | XMS_ITS ---
Author Organization [facility] Address [facility] [place] [id number] Care Team Providers Care Agriculture Intern Name Role Phone Elsy Cabral Primary Care Provider [phone] Jose L ANP-C, Tete Hammonds [phone] REASON FOR VISIT needs pap Encounters Encounter Location Date Provider Diagnosis [facility] in [address] [place] [address] 11/12/2023 Tete Domingo Plan Of Treatment No Information Progress Notes * Krysta NELSON EDOB: [birth year] (37 yo F)Acc No.[id number]:11/12/2023 Patient:?Krysta NELSON :1985???Age:37 Y???Sex:Female Address:[address] [place] [address] * true * Date:? Generated for Kevini margaux/Roc/eTransmitting on:?09/12/2024 06:32 PM EST
--- OUTSIDE RECORDS SUMMARY | 2024-09-12 18:33 | XMS_ITS | Encounter Summary ---
Author Organization [facility] [place] [address] Care Team Providers Care Nurse Technician Name Role Phone Catherine Jamison MD Primary Care Provider [phone] Reason for Visit * Reason Onset Date Comments transfer care 09/05/2024 Encounter Details Date Type Department Care Team (Late st Contact Info) Description 09/05/2024 Telephone Obstetrics and Gynecology [address] [address] Melinda Hodge, [address] [address] transfer care Social History Tobacco Use Types Packs/Day Years [...] as of this encounter Progress Notes * Ro Avila RN - 09/05/2024 9:16 AM EST Noted-episode resolved. * Jennifer Scott - 09/05/2024 9:06 AM EST FYI: Pt cancelled appt today thru mychart, transferred to [facility]. documented in this encounter Plan of Treatment Upcoming Encounters Date Type Department Care Team (Late st Contact Info) Description 10/27/2024 11:00 AM EDT Office Visit Adult Medicine [address] [address] Catherine Jamison MD [address] [place] [address] documented as of this encounter Visit Diagnoses Not on filedocumented in this encounter Care Teams Nurse Technician Relationship Specialty Start Date End Date Catherine Jamison MD [address] [place] [address] PCP - General Internal Medicine 07/15/24 documented as of this encounter
--- OUTSIDE RECORDS SUMMARY | 2024-09-12 18:33 | XMS_ITS ---
[place] [address] Care Team Providers Care Offset Assistant Press Operator Name Role Phone Elsy Cabral Primary Care Provider REASON FOR VISIT RE Pending referral to Psychiatry Encounters Encounter Location [place] [address] 3 Elsy Cabral Plan Of Treatment No Information Progress Notes * Krysta NLESON EDOB: [birth year] (37 yo F)Acc No.[id number]:04/28/2023 Patient:?Krysta Nelson :1985???Age:37 Y???Sex:Female Address:[address] [place] [address] * true * Date:? Generated for Kevini margaux/Roc/eTransmitting on:?09/12/2024 06:33 PM EST
--- OUTSIDE RECORDS SUMMARY | 2024-09-12 18:34 | XMS_ITS | Continuity of Care Document ---
Author Organization [facility] Address [address] [place] [address]- Care Team Providers Care Employee Welfare Manager Name Role Phone Canelo JONES, Altagracia Greenwood Primary Care Physician [place] [facility] [place](s[place] 07/25/24 - 08/24/[address] [address] Encounter Type: Triage Allergies, Adverse Reactions, Alerts No Known Medication Allergies Immunizations Given and Recorded Vaccine Date Status Refusal Reason SARS-CoV-2(COVID-19)mRNA-LNP vac([id number]) 04/24/24 Recorded influenza virus vaccine, inactivated 04/06/24 Efra rded SARS-CoV-2 (COVID-19) mRNA BNT-162b2 vac 07/25/21 Recorded SARS-CoV-2 (COVID-19) mRNA BNT-162b2 vac 12/22/20 Recorded SARS-CoV-2 (COVID-19) mRNA BNT-162b2 vac 12/01/20 Recorded Medications aspirin 81 mg oral tablet, chewable 2 tablet = 162 mg, Daily, 0 Refills, Maintenance, 08/24/24 3:31:00 PM EST, Partial fill upon patientrequest if the prescription is for a schedule II opioid drug. Start Date: 08/24/24 Status: Ordered Repeat number: 1 doxylamine 25 mg oral tablet 1 tablet = 25 mg, By Mouth, Daily, Take one tablet before bed. May take additional tablet in the morning if nausea still persistent, # 60 tablet, 8 Refills, Acute 08/24/25 12:00:00 AM EST, 08/24/24 3:12:00 PM EST, [facility]/pharmacy #[id number], Partial fill upon patient request if the prescription is for a schedule II opioid drug., 162, cm, 11/12/23 10:10:00 EDT, Height, 69.9, kg, 11/12/23 10:10:00 EDT, Dry Weight Start Date: 08/24/24 Stop Date: 08/24/25 Status: Ordered Quantity: 60.0 Unit: tablet Repeat number: 9 KlonoPIN 1 mg oral tablet 1 tablet = 1 mg, By Mouth, 2 times a day, 0 Refills, Maintenance, 04/22/21 3:35:00 PM EDT, Tablet, Partial fill upon patient request if the prescription is for a schedule II opioid drug. Start Date: 04/22/21 Status: Ordered Repeat number: 1 lamotrigine 150 mg oral tablet = 200 mg, By Mouth, Daily, 0 Refills, Maintenance, 05/04/17 2:31:23 PM EDT Start Date: 05/04/17 Status: Ordered Repeat number: 1 LORazepam 0.5 mg oral tablet 1 tablet = 0.5 mg, By Mouth, 2 times a day, PRN as needed for anxiety, 0 Refills, Maintenance, 02/09/20 2:14:00 PM EDT, Tablet Start Date: 02/09/20 Status: Ordered Repeat number: 1 lurasidone 120 mg oral tablet 1 tablet = 120 mg, By Mouth, Daily, # 30 tablet, 5 Refills, Maintenance, 02/24/17 9:22:48 AM EDT, Tablet, [facility]/pharmacy #[id number] Start Date: 02/24/17 Status: Ordered Quantity: 30.0 Unit: tablet Repeat number: 6 norethindrone 0.35 mg oral tablet 1 tablet = 0.35 mg, By Mouth, Daily, # 28 tablet, 0 Refills, Maintenance, 02/09/20 2:13:00 PM EDT, Tablet Start Date: 02/09/20 Status: Ordered Quantity: 28.0 Unit: tablet Repeat number: 1 Omeprazole = 20 mg, By Mouth, Daily, 0 Refills, Maintenance, 04/29/17 9:43:22 AM EDT Start Date: 04/29/17 Status: Ordered Repeat number: 1 ondansetron 4 mg oral tablet, disintegrating 1 tablet = 4 mg, By Mouth, Every 8 hours, PRN Nausea & Vomiting, # 10 tablet, 0 Refills, Maintenance, 02/09/20 7:26:00 PM EDT, Tablet, [facility]/pharmacy #[id number], 161, cm, 02/09/20 14:08:00 EDT, Height, 60, kg, 02/09/20 14:08:00 EDT, Dry Weight Start Date: 02/09/20 Status: Ordered Quantity: 10.0 Unit: tablet Repeat number: 1 Paragard IUD See Instructions, # 1 applicator, Refills 0, Tot. Refills 0, Maintenance, to office for administration, 04/04/15 3:07:09 PM EDT, Compound Start Date: 04/04/15 Status: Ordered Quantity: 1.0 Unit: applicator Repeat number: 1 Indication: Presence of Intrauterine Contraceptive Device pyridoxine 25 mg oral tablet 1 tablet = 25 mg, By Mouth, 3 times a day, PRN Nausea & Vomiting, # 100 tablet, 8 Refills, Acute 08/24/25 12:00:00 AM EST, 08/24/24 3:12:00 PM EST, [facility]/pharmacy #[id number], Partial fill upon patient request if the prescription is for a schedule II opioid drug., 162, cm, 11/12/23 10:10:00 EDT, Height, 69.9, kg, 11/12/23 10:10:00 EDT, Dry Weight Start Date: 08/24/24 Stop Date: 08/24/25 Status: Ordered Quantity: 100.0 Unit: tablet Repeat number: 9 Problem List Condition Confirmation Course Effective Dates Status H ealth Status Informant Abnormal Pap smear of cervix Confirmed Active Acne Confirmed Active Tenderness of female pelvic organs Confirmed Active Anxiety disorder Confirmed Active Allergic dermatitis Confirmed Active H/O Bilateral headaches Confirmed Active Bipolar illness Confirmed Active Depression Confirmed Active Dizziness Confirmed Active Dizziness Confirmed Active Dysfunctional uterine bleeding Confirmed Active Fatigue Confirmed Active Hematemesis Confirmed Active Hematochezia Confirmed Active Hx of ovarian cyst Confirmed Active Irritable bowel syndrome Confirmed Active Migraine Confirmed Active Nausea Confirmed Active Pelvic pain Confirmed Active Stomach cramps Confirmed Active Vaginal Discharge Confirmed Active Social History Social History Type Response Smoking Status Never smoker entered on: 11/28/15 Sex Sex Representation Female (finding) Patient Care team information Care Team Personnel Name: Altagracia Lemos MD Position: [facility] Physician - Primary Care Member Role: PCP Address: [address] [place] [address]- Telecom: Name: Mona Montelongo [place] Position: [facility] Office Staff Member Role: Primary Care Nurse Name: Angela Phipps [place] Position: [facility] Office Staff Member Role: Primary Care Nurse Care Team Related Persons Name: TREY BUSH Name: SUPRIYA PIRES Insurance Providers Guarantor name: JOSEPHINE PIRES Health Plan Information #: 1 Payer: [employer] Member Number: NA Policy Number: NA Group Number: NA Health Plan Information #: 2 Payer: [employer] Member Number: NA Policy Number: NA Group Number: NA
--- OUTSIDE RECORDS SUMMARY | 2024-09-12 18:34 | XMS_ITS | Data Portability ---
Author Organization [facility], , [facility] Address [address] [place] [address] Assessment No assessment recorded. Plan of Treatment Reminders Order Date Submit Date Provider Last Modified By Organization Details Last Modified Time Details Appointments None record ed. Lab None record ed. Referral None record ed. Procedures None record ed. Surgeries None record ed. Imaging None record ed. Medication Orders None record ed. Patient TargetsNo targets recorded. Patient InstructionsNo instructions recorded. Reason for Referral None Reported. Results Created Date Observation Date Name Description Value Unit Range Abnormal Flag Note LastModifiedBy Organization Detail LastModifiedTime Result Notes None recorded. Procedures Surgical History Date Name Laterality Status Provider Name and Address Organization Details Recorded Time 7 Shreya - Colonoscopy completed Darrion Cash MD [address] [place] [address], [phone], [facility] 02/04/2017 10:23:16 6 Shreya - EGD completed Darrion Cash MD [address] [place] [address], [phone], [facility] 05/02/2016 10:08:47 Imaging Results None recorded. Procedure Notes None recorded. Medical Equipment None Reported. Medications Name Sig Start Date Stop Date Status Note LastModified by Organization Details LastModified Time amoxicillin 500 mg capsule active Not Available Not Available N ot Available lamotrigine 150 mg tablet active Not Available Not Available No t Available clonidine HCl 0.1 mg tablet active Not Available Not Availabl e Not Available citalopram 40 mg tablet active Not Available Not Available Not Available famotidine 40 mg tablet active Not Available Not Available Not Available clonazepam 0.5 mg tablet active Not Available Not Available No t Available olanzapine 5 mg tablet active Not Available Not Available Not Available sumatriptan 50 mg tablet TAKE 1 TABLET ONCE NEEDED FOR MIGRAIN E,MAY REPEAT DOSE AFTER 2 HOURS UP TO MAX OF 4 TABS PER DAY active Not Available Not Available No t Available prochlorperazine maleate 10 mg tablet active Not Available Not Available Not Available olanzapine 2.5 mg tablet active Not Available Not Available No t Available omeprazole 40 mg capsule,delayed release active Not Available Not Available Not Available butalbital-aceta minophen-caffein e 50 mg-325 mg-40 mg tablet active Not Available Not Availa ble Not Available citalopram 20 mg tablet active Not Available Not Available Not Available meclizine 25 mg tablet active Not Available Not Available Not Available propranolol 20 mg tablet active Not Available Not Available No t Available hydroxyzine HCl 10 mg tablet active Not Available Not Available Not Available fluoxetine 20 mg capsule active Not Available Not Available Not Available lamotrigine 100 mg tablet active Not Available Not Available No t Available rizatriptan 5 mg tablet active Not Available Not Available Not Available GaviLyte-G 236 gram-22.74 gram-6.74 gram-5.86 gram oral solution active Not Available Not Availabl e Not Available Latuda 80 mg tablet active Not Available Not Available Not Available Latuda 120 mg tablet TAKE 1 TABLET BY MOUTH DAILY (FAXED AND CALLED MD FOR PA) active Not Available Not Available No t Available Vitals None Recorded Social History None recorded. Functional Status None recorded. Mental Status None recorded. Family History Nothing Reported. Medical History No medical history recorded. Gynecological HistoryNo gynecological history recorded. Obstetrics History GPAL:G 0 P 0 0 0 0 Past Encounters Encounter ID Performer Location Encounter Start Date Encounter Closed Date Diagnosis/Indication Diagnosis SNOMED-CT Code Diagnosis ICD10 Code Diagnosis Note [id number] Darrion Cash MD [facility], [address] [address] 05/02/2016 07:58:02 05/02/2016 14:25:47 [id number] Darrion Cash MD [facility], [address] [address] 02/04/2017 08:15:28 02/04/2017 14:05:12 Health Concerns Section Related Observation LastModified by Organization Detai ls LastModified Time None Recorded Concern Status LastModified by Organization Details LastModified Time None Recorded Advance Directives Directive None Recorded Payers Encounter Date Sequence Insurance Name Policy Number Policy Patterson Covered Member ID Patterson Member ID Guarantor Name 05/02/2016 1 [facility] (MEDICAID HMO) Krysta Nelson [id number] Krysta Nelson 02/04/2017 1 [facility] (MEDICAID HMO) Krysta Nelson [id number] Krysta Nelson OBGyn Episode No OBEpisode recorded.
== END 2024-09-12 16:51 | disposition home or self-care (01) ==
PROVIDERS: PCP Internal Medicine; Visit Provider Nurse Practitioner Family
DX: J06.9 Acute upper respiratory infection, unspecified (principal)

== ENCOUNTER 2024-09-12 15:47 | Outpatient (REF) | payer OTHER, SELFPAY ==
--- OUTSIDE RECORDS SUMMARY | 2024-09-12 18:58 | XMS_ITS | Patient Health Record ---
Author Organization [facility] Address [place] [address] Care Team Providers Care President [employer] Name Role Phone Elsy Cabral Primary Care Provider Tete Brandt Allergies Allergen (clinical drug ingredient) Drug/Non Drug Allergy documented on EMR Reaction Allergy Type Onset Date Status aripiprazole ARIPiprazole weight gain Drug Allergy Active gabapentin Gabapentin zombie Drug Allergy Activ e lithium carbonate [place] Carbonate became suicidal Drug All ergy Active olanzapine OLANZapine over sedated, weight gain Drug Allergy Active lurasidone Latuda ineffective Drug Allergy Acti ve cariprazine Vraylar EPS Drug Allergy Activ e escitalopram Escitalopram caused hypomania Drug Allergy Active Shellfish (FN) Shellfish-derived Products welts/ anaphalxis Drug Allergy Active Reason For Referral No Information Medications Medication SIG (Take, Route, Frequency, Duration) Notes Start Date End Date Status clonazePAM 1 MG 1/2 tablet in the morning, and 1 tablet midday, and 1 tablet in the evening Orally As directed for 90 days Going up in dose. 04/24/2023 Active Famotidine 20 MG 1 tablet at bedtime as needed Orally Once a day Active lamoTRIgine 200 MG 1 tablet Orally Once a day for 90 days 04/14/2023 Active traZODone HCl 100 MG 1 tablet at bedtime Orally Once a day for 90 days 04/14/2023 Active Fluticasone Propionate 50 MCG/ACT 1 spray in each nostril Nasally Once a day Active metFORMIN HCl 500 MG 1 tablet with a letitia l Orally Twice a day for 30 day(s) 01/27/2023 Active Omeprazole 40 MG 1 capsule 30 minutes before morning meal Orally Once a day for 30 day(s) Active Vraylar 3 MG 1 capsule Orally Onc e a day for 90 days Active hydrOXYzine HCl 50 MG 1 tablet at bedtim e as needed Orally Once a day Active Depakote 250 MG 1 tablet Orally Once a day for 90 days 04/14/2023 Active Multivitamin Active Paragard Intrauterine Copper - as directed Intrauterine Active Prazosin HCl 1 MG 1 capsule at bedtime Orally Once a day for 90 days 03/03/2023 Active ALPRAZolam 0.5 MG 1 tablet Orally Once a day for 5 days 02/05/2023 Active Propranolol HCl 10 MG 1 tablet Orally Tw ice a day for 90 days 01/27/2023 Active Immunizations Vaccine Route Administration Date Status Comme nts Tdap (Private) IM Intramuscular 09/10/2022 Administered Pfizer Covid Vaccine # 1 Unknown 07/25/2021 Administere d Social History Tobacco Use: Social History Observation Description Date Details (start date - stop date) Unknown Tobacco Use/Smoking Question Answer Notes Are you a Uses tobacco in other forms Alcohol Screen (Audit-C) Question Answer Notes Did you have a drink containing alcohol in the p ast year? 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) Active confirmed Problem 670447793 Hot flashes (R23.2) Active confirmed Problem 122284121 Panic disorder [episodic paroxysmal anxiety] (F41.0) Active confirmed Problem 410313801 Nightmares (F51.5) Active confirmed Problem 17579370 Anorexia nervosa with bulimia (F50.02) Active confirmed Problem Urinary tract infectious disease (64151879) UTI symptoms (R39.9) Active confirmed Problem Dysphagia (43075302) Dysphagia (R13.10) Active confirmed Problem 424486289 Urine test negative (Z32.02) Active confirmed Problem Bipolar disorder (92179428) Bipolar disease, chronic (F31.9) Active confirmed Problem History of eating disorder (8538995601491 01) History of eating disorder (Z86.59) Active confirmed Problem 67081667 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 [address] 11/12/2023 Tete Domingo Plan Of Treatment Future Test Test Name Order Date Odifh-7-Bvuyhcieivi 03/04/2022 CBC AUTO DIFF (REFLEX TO MANUAL) 022 Comprehensive Metabolic Panel(CMP) 03/04 Thyroid Stimulating Hormone (TSH) 2021 Hemoglobin A1c 03/04/2022 Lipid Profile 03/04/2022 Hepatitis B Surface Ab (Q) (AHBs ) 05/24 Measles (Rubeola) Antibody IgG Quantiferon -TB Gold (site incubated) Varicella Zoster IgG Antibody 05/24/2022 Rubella Antibodies, IgG 05/24/2022 Mumps Virus IgG Antibody 05/24/2022 Gocck-9-Yznljwwbtmg 08/28/2022 Thyroid Stimulating Hormone (TSH) 2022 Lipid Profile 08/28/2022 Thyroid Stimulating Hormone (TSH) 2022 Insurance Providers Payer Name Payer Address Payer Phone Subscriber Number Group Number Insured Name Patient Relationship to Insured Coverage Start Date Coverage End Date [place] [address] [place] [id number] Krysta eNlson Self - patient is the insured 2 Medications Administered Medication Instructions Date of Administration Dosage Notes Copper 05/30/2022 Medical (General) History Medical History History ICD Code hx of 7cm cyst right ovary IBS, GERD bipolar 1 HPV #16 migraine with aura Surgical History Surgery Date(Month/Year) [place] Teeth Extraction cyst removed from rt ovary 03/19/2020 Hospitalization History Reason Date(Month/Year) psychiatric hospitalizations for bipolar 1 in [place], [place] 07/2022
--- OUTSIDE RECORDS SUMMARY | 2024-09-12 18:58 | XMS_ITS | Encounter Summary ---
Author Organization [facility] [place] [address] Care Team Providers Care Liability Claims Manager Name Role Phone Catherine Jamison MD Primary Care Provider [phone] Reason for Visit * Reason Onset Date Comments transfer care 09/05/2024 Encounter Details Date Type Department Care Team (Late st Contact Info) Description 09/05/2024 Telephone Obstetrics and Gynecology [address] [address] Melinda Hodge, [address] [address] transfer care Social History Tobacco Use Types [...] cancelled appt today thru mychart, transferred to [facility]. documented in this encounter Plan of Treatment Upcoming Encounters Date Type Department Care Team (Late st Contact Info) Description 10/27/2024 11:00 AM EDT Office Visit Adult Medicine [address] [address] Catherine Jamison MD [address] [place] [address] documented as of this encounter Visit Diagnoses Not on filedocumented in this encounter Care Teams Liability Claims Manager Relationship Specialty Start Date End Date Catherine Jamison MD [address] [place] [address] PCP - General Internal Medicine 07/15/24 documented as of this encounter
--- OUTSIDE RECORDS SUMMARY | 2024-09-12 18:58 | XMS_ITS | Encounter Summary ---
Author Organization [facility] [place] [address] Care Team Providers Care Furrier Designer Name Role Phone Catherine Jamison MD Primary Care Provider [phone] Encounter Details Date Type Department Care Team ([facility] st Contact Info) Description 09/01/2024 Telephone Obstetrics and Gynecology - [place] [address] [place] [phone] Marium Jackson [place] Social History Tobacco Use [...] 11:00 AM EDT Office Visit Adult Medicine [address] [address] Catherine Jamison MD [address] [place] [address] documented as of this encounter Visit Diagnoses Not on filedocumented in this encounter Care Teams Furrier Designer Relationship Specialty Start Date End Date Catherine Jamison MD [address] [place] [address] PCP - General Internal Medicine 07/15/24 documented as of this encounter
--- OUTSIDE RECORDS SUMMARY | 2024-09-12 18:58 | XMS_ITS | Clinical Summary ---
Author Organization [facility] [address] [facility] [address] Address [address] [place] [address] Phone Care Team Providers Care Wood Room Supervisor Name Role Phone Catherine Jamison MD Primary Care Provider [phone] Allergies Active Allergy Reactions Criticality Noted Date [...] Overview (06/23/2024): behavioral health through [facility] [place]; Edie Lyons (psych) GERD (gastroesophageal reflux disease) [...] 07/20/2024 09/05/2024 Overview (09/01/2024): 1. [facility] site: [facility]: [address] [place] [address] ([phone]) 2. Delivery site: [facility] 3. Mobile Mommas: No 4. Dating criteria: [...] Description 09/05/2024 Telephone Obstetrics [place] [address] Melinda Hodge CNM transfer care 09/01/2024 Telephone Obstetrics and Gynecology [address] [address] [place]ium [place], [place] 08/12/2024 Telephone Obstetrics and Gynecology [address] [phone] Melinda Hodge CNM Problem 08/09/2024 Telephone Obstetrics and Gynecology - [address] [phone] Melinda Hodge CNM 08/03/2024 Telephone Obstetrics and Gynecology [address] [phone] Melinda Hodge CNM Transitional Care Management; Incoming Call 07/22/2024 3:00 PM EST Clinical Support Obstetrics and [address] [address] Encounter for supervision of normal first in first trimester (Primary Dx); Primigravida of advanced maternal age in first trimester; Marijuana smoker 07/15/2024 1:00 PM EST Clinical Support Obstetrics and [address] [address] Irregular periods (Primary Dx) 07/08/2024 Telephone Adult Medicine [address] [phone] Catherine Jamison MD lab request from Last 3 Months Immunizations Name Administration Dates Next Due Pfizer SARS-CoV-2 COVID-19, mRNA, LNP-S, preservative free 07/25/2021,12/22/2020,12/01/2020 Tdap Tetanus diptheria acell ular pertussis (Boostrix; Adacel) 7yo and older 03/25/2021 Surgical History Surgery Date Site/Laterality Comments COLONOSCOPY PROCEDURE: HISTORICAL COLONOSCOPY OTHER SURGICAL HISTORY PROCEDURE: [place] ESOPHAGOSCOPY FLEXIBLE TRANSORAL DIAGNOSTIC WISDOM TOOTH EXTRACTION PROCEDURE: HISTORICAL WISDOM TEETH EXTRACTION UPPER GASTROINTESTINAL ENDOSCOPY 12/08/2018 PROCEDURE: UPPER GI ENDOSCOPY/EXAM; COMMENT: negative, biopsy pending OVARIAN CYST REMOVAL 02/2020 PROCEDURE: OK OVARIAN CYSTECTOMY UNI/BI; COMMENT: laparoscopic, Eppsteiner, large follicular cyst and torsion Medical History Medical History Date Comments GERD (gastroesophageal reflu x disease) DX:GERD (gastroesophageal re flux disease) PUD (peptic ulcer disease) DX:PU D (peptic ulcer disease) IBS (irritable bowel syndrome) D X:IBS (irritable bowel syndrome) Bipolar 1 disorder (CMS/HCC) DX: Bipolar 1 disorder (HCC); COMMENT: behavioral health through [facility]; Edie Lyons (psych) Migraines 04/27/2018 DX:Migraines [...] 11:00 AM EDT Office Visit Adult Medicine [facility] [address] [place] [address] Catherine Jamison MD [address] [place] [phone] Health Maintenance Due Date Last Done Comments [...] blood specimen / Unknown us Melinda Hodge [facility] BLOOD ORDERABLES Final Result * Panorama test (08/26/2024 11:58 AM EST) Blood Venous blood specimen / Unknown Melinda Hodge [facility] BLOOD ORDERABLES Final Result * Hepatitis C antibody (08/22/2024 10:35 AM EST) Hepatitis C Antibody Negative Negative LAB CHEMISTRY METHOD 08/22/2024 12:49 PM EST [facility] Blood Venous blood specimen / Unknown Venipuncture / Unknown 08/22/2024 10:35 AM EST 08/22/2024 10:35 AM EST us [facility] BLOOD ORDERABLES Final Result [facility] [address] [place] [address], [place] [phone] * HIV 1,2 antibody, p24 antigen with reflex to differentiation (08/22/2024 10:35 AM EST) HIV Combo AB/AG Negative Negative LAB CHEMISTRY METHOD 08/22/2024 12:50 PM EST [facility] Blood Venous blood specimen / Unknown Venipuncture / Unknown 08/22/2024 10:35 AM EST 08/22/2024 10:35 AM EST [facility] - 08/22/2024 12:50 PM EST This [...] BLOOD ORDERABLES Final Result Performing Organization Address [facility] Co de Phone Number [facility] [address] [place] [address], [place] [phone] * Hepatitis B surface antigen with reflex to confirmation (08/22/2024 10:35 AM EST) Hepatitis B Surface Ag Negative Negative LAB CHEMISTRY METHOD 08/22/2024 12:22 PM EST [facility] Blood Venous blood specimen / Unknown Venipuncture / Unknown 08/22/2024 10:35 AM EST 08/22/2024 10:35 AM EST Narrative [facility] - 08/22/2024 12:22 PM EST Over the counter supplements containing high doses of biotin may interfere with this assay. ??If interference is suspected, patients shoud be retested after refraining from biotin supplements for 72 hours. us Melinda Hodge [facility] BLOOD ORDERABLES Final Result Performing Organization Address [facility]/ZIP Co de Phone Number [facility] [address] [place] [address], * Treponema pallidum antibody with reflex to RPR and particle agglutination (08/22/2024 10:35 AM EST) T. Pallidum Antibodies Negative Negative LAB CHEMISTRY METHOD 08/22/2024 12:21 PM [facility] Blood Venous blood specimen / Unknown Venipuncture / Unknown 08/22/2024 10:35 AM EST 08/22/2024 10:35 AM EST [facility] BLOOD ORDERABLES Final Result Performing Organization Address [facility] Co de Phone Number [facility] [address] [place] [address], * Venipuncture charge (08/22/2024 10:35 AM EST) Pathologist [facility] Extra Tube Hold for add-ons. 08/22/2024 12:01 PM EST [facility] ([place]) Comment:Auto resulted. Blood Venous blood specimen / Unknown Venipuncture / Unknown 08/22/2024 10:35 AM EST 08/22/2024 10:35 AM EST [facility] BLOOD ORDERABLES Final Result Performing Organization Address City/[facility]/ZIP Co de Phone Number [facility] ([place]) [place], * Drug abuse screen expanded with reflex confirmation, urine (08/22/2024 10:35 AM EST) Amphetamine Screen, Ur Negative Negative LAB CHEMISTRY METHOD 08/22/2024 12:46 PM EST [facility] Comment:Certain OTC medicati ons containing ephedrine, phenylephrine, pseudoephedrine and phenylpropanolamine can cause false positive results. Barbiturate Screen, Ur Negative Negative LAB CHEMISTRY METHOD 08/22/2024 12:46 PM [facility] Benzodiazepine Screen, Ur Negative Negative LAB CHEMISTRY METHOD 08/22/2024 12:46 PM [facility] Cocaine Screen, Ur Negative Negative LAB CHEMISTRY METHOD 08/22/2024 12:46 PM [facility] Opiate Screen, Ur Negative Negative LAB CHEMISTRY METHOD 08/22/2024 12:46 PM [facility] Cannabinoid (THC) Screen, Ur Negative Negative LAB CHEMISTRY METHOD 08/22/2024 12:46 PM [facility] Comment:Specimens from patie nts taking pantoprazole sodium (Protonix) have been shown to produce false positive results. Fentanyl, Ur Negative Negative LAB CHEMISTRY METHOD 08/22/2024 12:46 PM [facility] Oxycodone Screen, Ur Negative Negative LAB CHEMISTRY METHOD 08/22/2024 12:46 PM [facility] Urine Urine specimen obtained by clean catch procedure / Unknown Non-blood Collection / Unknown 08/22/2024 10:35 AM EST 08/22/2024 10:35 AM EST [facility] - 08/22/2024 12:46 PM EST Assay [...] SENT FOR ALTERNATE METHOD CONFIRMATION* Melinda Hodge [facility] URINE ORDERABLES Final Result [facility] [address] [place] [address], * (ABNORMAL) CBC auto differential (08/22/2024 10:35 AM EST) [facility] Signature WBC 8.8 4.8 - 10.8 K/mcL LAB HEMETOLOGY METHOD 08/22/2024 11:31 AM EST [facility] RBC 4.30 3.80 - 4.80 M/mcL LAB HEMETOLOGY METHOD 08/22/2024 11:31 AM EST [facility] Hemoglobin 13.3 11.5 - 16.0 g/dL LAB HEMETOLOGY METHOD 08/22/2024 11:31 AM [facility] Hematocrit 40.3 35.0 - 47.0 % LAB HEMETOLOGY METHOD 08/22/2024 11:31 AM [facility] MCV 94.2 79.0 - 98.0 FL LAB HEMETOLOGY METHOD 08/22/2024 11:31 AM EST [facility] MCH 31.1 27.0 - 32.0 pcg LAB HEMETOLOGY METHOD 08/22/2024 11:31 AM [facility] MCHC 33.0 32.0 - 37.0 g/dL LAB HEMETOLOGY METHOD 08/22/2024 11:31 AM EST [facility] RDW 12.9 11.0 - 15.0 % LAB HEMETOLOGY METHOD 08/22/2024 11:31 AM [facility] Platelets 249 130 - 400 K/mcL LAB HEMETOLOGY METHOD 08/22/2024 11:31 AM [facility] MPV 9.7 7.0 - 11.0 FL LAB HEMETOLOGY METHOD 08/22/2024 11:31 AM [facility] NRBC 0.0 <1.0 % LAB HEMETOLOGY METHOD 08/22/2024 11:31 AM [facility] NRBC Absolute 0.00 <0.10 K/mcL LAB HEMETOLOGY METHOD 08/22/2024 11:31 AM [facility] Neutrophils Relative 74.8 % LAB HEMETOLOGY METHOD 08/22/2024 11:31 AM [facility] Lymphocytes Relative 17.2 % LAB HEMETOLOGY METHOD 08/22/2024 11:31 AM [facility] Monocytes Relative 5.1 % LAB HEMETOLOGY METHOD 08/22/2024 11:31 AM [facility] Eosinophils Relative 1.6 % LAB HEMETOLOGY METHOD 08/22/2024 11:31 AM [facility] Basophils Relative 0.5 % LAB HEMETOLOGY METHOD 08/22/2024 11:31 AM [facility] Immature Granulocytes Relative 0.8 % LAB HEMETOLOGY METHOD 08/22/2024 11:31 AM [facility] Neutrophils Absolute 6.58 1.50 - 7.00 K/mcL LAB HEMETOLOGY METHOD 08/22/2024 11:31 AM [facility] Lymphocytes Absolute 1.51 1.00 - 5.00 K/mcL LAB HEMETOLOGY METHOD 08/22/2024 11:31 AM [facility] Monocytes Absolute 0.45 0.20 - 1.00 K/mcL LAB HEMETOLOGY METHOD 08/22/2024 11:31 AM [facility] Eosinophils Absolute 0.14 0.00 - 0.50 K/mcL LAB HEMETOLOGY METHOD 08/22/2024 11:31 AM [facility] Basophils Absolute 0.04 0.00 - 0.20 K/mcL LAB HEMETOLOGY METHOD 08/22/2024 11:31 AM [facility] Immature Granulocytes Absolute 0.07(H) 0.00 - 0.03 K/mcL LAB HEMETOLOGY METHOD 08/22/2024 11:31 AM EST [facility] Blood Venous blood specimen / Unknown Venipuncture / Unknown 08/22/2024 10:35 AM EST 08/22/2024 10:35 AM EST Melinda Velásquezdainalidia [facility] BLOOD ORDERABLES Final Result Performing Organization Address City/[facility]/ZIP Co de Phone Number [facility] [address] [place] [address], [place] [phone] * Rubella antibody IgG (08/22/2024 10:35 AM EST) Rubella IgG Quant 20.8 >=10.0 I Unit/mL LAB CHEMISTRY METHOD 08/22/2024 12:27 PM EST [facility] Rubella IgG Antibody Interp Positive Positive LAB CHEMISTRY METHOD 08/22/2024 12:27 PM EST [facility] Blood Venous blood specimen / Unknown Venipuncture / Unknown 08/22/2024 10:35 AM EST 08/22/2024 10:35 AM EST [facility] BLOOD ORDERABLES Final Result Performing Organization Address [facility]/ZIP Co de Phone Number [facility] [address] [place] [address], * Type and screen (08/22/2024 10:35 AM EST) ABO Group O 08/22/2024 12:27 PM EST [facility] Rh Type Positive 08/22/2024 12:27 PM EST [facility] Antibody Screen Negative 08/22/2024 12:27 PM EST [facility] Blood Venous blood specimen / Unknown Venipuncture / Unknown 08/22/2024 10:35 AM EST 08/22/2024 10:35 AM EST us Melinda Hodge [facility] BLOOD BANK TEST ORDERAB LES Final Result Performing Organization Address [facility] de Phone Number [facility] [address] [place] [address], [place] [phone] * Culture urine (08/22/2024 10:35 AM EST) Urine Urine specimen obtained by clean catch procedure / Unknown Non-blood Collection / Unknown 08/22/2024 10:35 AM EST 08/22/2024 10:35 AM EST Narrative [facility] - 08/24/2024 12:41 PM EST COLONY COUNT: ??<1,000 CFU/ML Beta Strep Group B noted. The presence of a low colony count of Beta Strep Group B may have clinical significance in women. us Melinda Hodge [facility] MICROBIOLOGY - GENERAL ORDERABLES Final Result Performing Organization Address [facility] de Phone Number [facility] [address] [place] [address], [place] [phone] * Varicella zoster antibody IgG (08/22/2024 10:35 AM EST) Varicella IgG Positive Positive LAB CHEMISTRY METHOD 08/22/2024 1:45 PM EST [facility] Varicella Zoster IgG 5.15 >=1.00 S/CO LAB CHEMISTRY METHOD 08/22/2024 1:45 PM EST [facility] Blood Venous blood specimen / Unknown Venipuncture / Unknown 08/22/2024 10:35 AM EST 08/22/2024 10:35 AM EST Narrative [facility] - 08/22/2024 1:45 PM EST Interpretation >= 1.00 S/CO is considered to be consistent with Immunity us Melinda Hodge [facility] BLOOD ORDERABLES Final Result Performing Organization Address [facility]/State/ZIP Co de Phone Number [facility] [address] [place] [address], * (ABNORMAL) POC , urine manually resulted (07/15/2024 1:29 PM EST) [facility] HCG, Ur POC Positive(A ) Negative POC hCG Int QC Pass? Yes Yes Urine Urine specimen obtained by clean catch procedure / Unknown 07/15/2024 1:29 PM EST Martine HOLLIS POINT OF CARE TEST ENTER/ED IT ORDERABLES Final Result * Lipid panel (04/05/2024) [facility] LDL/HDL Ratio 2 0 - 4 Triglycerides 106 0 - 150 mg/dL Cholesterol 187 0 - 200 mg/dL HDL 79 >=40 mg/dL LDL Cholesterol 87 0 - 100 mg/dL Blood Venous blood specimen / Unknown Historical Provider LAB BLOOD ORDERABLES Parris l Result * Cervical Cancer Screening: HPV (04/02/2021) [facility] Cervical Cancer Screening: HPV negative, abstracted Historical Provider HEALTH MAINTENANCE Final Result from Last 3 Months or Most Recently Relevant to Health Maintenance Insurance [employer] Care Teams Wood Room Supervisor Relationship Specialty Start Date End Date Catherine Jamison MD [address] [place] [phone] PCP - General Internal Medicine 07/15/24
[2024-09-13 10:53] LABS: Influenza A PCR NEGATIVE (Negative); Influenza B PCR NEGATIVE (Negative); Resp Syncy Virus RNA Qual PCR NEGATIVE (Negative); SARS COV2 PCR INHOUSE NEGATIVE (Negative)
== END 2024-09-12 15:48 | disposition home or self-care (01) ==
LOC: HO.LAB 15:47
PROVIDERS: PCP Internal Medicine; Visit Provider Nurse Practitioner Family
DX: J06.9 Acute upper respiratory infection, unspecified (principal)
CPT/HCPCS: 0241U; 99212

== ENCOUNTER 2024-10-17 15:55 | Outpatient (AMB) | payer OTHER, SELFPAY ==
--- NOTE | 2024-10-17 15:56 | AM.OFFWIN_ITS ---
Intake Vital Signs 10/17/24 15:58 Height 5 ft 3 in Weight 146 lb BMI 25.9 BP 112/60 Blood Pressure Location Rt brachial Position Sitting Pulse 66 Pulse Source Pulse Oximeter Temp 98.4 F Temp Source Oral Pulse Oximetry (%) 99 Oxygen Delivery Method Room Air Intake Visit Reasons: EP sore throat, congested, chills Intake Note: Patient here for congestion, chills, sore throat and slight cough that started . She is 18 weeks . Patient Tobacco Use Status: Never used Tobacco Allergies scallops Adverse Reaction (Verified 10/17/24 16:00) wilts Do you need a note to return to daycare/school/sports/work: No HPI HPI Comments History of Present Illness Details 38 y/o female patient who presents to [facility] walk in clinic with c/o URI symptoms since . Pt c/o Sore-throat, Chest congestion, cough and chills. Pt is 18 weeks . [facility] Medical History (Updated 09/12/24 @ 16:07 by Senait York NP) Acute respiratory disease Social History (Updated 10/06/23 @ 09:18 by Ora Oseguera CMA) Alcohol intake: current Alcohol intake frequency: a few times a month Patient Tobacco Use Status: Never used Tobacco e-Cigarette/Vaping Use: Currently Using Review of Systems Const All systems reviewed & are unremarkable except as noted in HPI and below Physical Exam Vital Signs: Last Vital Signs Temp 98.4 F 10/17/24 15:58 Pulse 66 10/17/24 15:58 BP 112/60 10/17/24 15:58 Pulse Ox 99 10/17/24 15:58 Oxygen Delivery Method Room Air 10/17/24 15:58 BMI result Body Mass Index 25.9 Const General: no acute distress Nutritional Appearance: overweight Orientation/consciousness: patient oriented x3 HEENT Head: Yes normocephalic Ears: external ears normal and TM abnormal with fluid behind the TM bilateral General nose exam: Nasal discharge present Face and sinus: Yes sinuses nontender Mouth: moist mucous membranes Throat: Yes uvula midline Resp Effort & Inspection: normal respiratory effort and able to speak in complete sentences Auscultation: clear to auscultation bilaterally, no crackles, no rales, no rhonchi and no wheezes Cardio Rate: regular rate Heart sounds: S1 normal heart sound present and S2 normal heart sound present Neuro General: patient oriented x3, gait normal and moves all extremities Psych Speech and movement: Normal speech and movement present Results AMB Rapid Strep AMB Rapid Strep Negative Last Edit by MAISHA Maciel on 10/17/24 16:12 Assessment & Plan Assessment & Plan (1) Acute respiratory disease: Code(s): J06.9 - Acute upper respiratory infection, unspecified Plan: Ordered SARs. Rapid Strep Negative. OTC Cold/Flu remedies. Acetaminophen for Fever and pain relief. Rest and Hydrate well with warm fluids. Orders: Orders AMB Rapid Strep Screen Today Z13.9 - Encounter for screening, unspecified SARS-CoV2/FLU/RSV Today J06.9 - Acute upper respiratory infection, unspecified Coding Level of Care Code Est Pt Level 4 (79103) Diagnoses Acute respiratory disease J06.9 Time Spent (min) 20
[2024-10-17 15:58] VITALS: BP 112/60; PULSE 66; TEMP 36.9; O2SAT 99; BMI 25.9
--- OUTSIDE RECORDS SUMMARY | 2024-10-17 18:32 | XMS_ITS ---
Author Organization [place] [address] Care Team Providers Care Career And Technology Education Teacher Name Role Phone Elsy Pat Primary Care Provider Jose L ANP-C, Tete Hammonds REASON FOR VISIT needs pap Encounters Encounter Location Date Provider Diagnosis [facility] in [address] [place] [address] 11/12/2023 Tete Domingo Plan Of Treatment No Information Progress Notes * Krysta NELSON EDOB: [birth year] (37 yo F)Acc No.[id number]:11/12/2023 Patient:?Krysta NELSON :1985???Age:37 Y???Sex:Female Address[address] [place] [address] * true * Date:? Generated for Printi ng/Famarag/eTransmitting on:?10/17/2024 06:32 PM EDT
--- OUTSIDE RECORDS SUMMARY | 2024-10-17 18:32 | XMS_ITS | Data Portability ---
Author Organization [facility], , [facility] Address [address] [place] [address] Assessment No assessment recorded. Plan of Treatment [...] Shreya - Colonoscopy completed Darrion Cash MD [address] [place] [address], [phone], [facility] 02/04/2017 10:23:16 6 Shreya - EGD completed Darrion Cash MD [address] [place] [address], [phone], [facility] 05/02/2016 10:08:47 Imaging Results None recorded. Procedure [...] SNOMED-CT Code Diagnosis ICD10 Code Diagnosis Note [id number] Darrion Cash MD [facility], [address] [address] 05/02/2016 07:58:02 05/02/2016 14:25:47 [id number] Darrion Cash MD [facility], [address] [address] 02/04/2017 08:15:28 02/04/2017 14:05:12 Health Concerns Section Related Observation LastModified by Organization Detai ls LastModified Time None Recorded Concern Status LastModified by Organization Details LastModified Time None Recorded Advance Directives Directive None Recorded Payers Encounter Date Sequence Insurance Name Policy Number Policy Patterson Covered Member ID Patterson Member ID Guarantor Name 05/02/2016 1 [employer] (MEDICAID HMO) Krysta Nelson [id number] Krysta Nelson 02/04/2017 1 [employer] (MEDICAID HMO) Krysta Nelson [id number] Krysta Nelson OBGyn Episode No OBEpisode recorded.
--- OUTSIDE RECORDS SUMMARY | 2024-10-17 18:32 | XMS_ITS ---
Author Organization [facility] [place] [address] Care Team Providers Care Air Crew Supervisor Name Role Phone Elsy Pat Primary Care Provider Bryce Ribeiro [facility] [phone] Medications Medication SIG (Take, Route, Frequency, Duration) Notes Start Date End Date Status clonazePAM 1 MG 1/2 tablet in the morning, and 1 tablet midday, and 1 tablet in the evening Orally As directed for 90 days Going up in dose. 04/24/2023 Active Encounters Encounter Location Date Provider Diagnosis [facility] [address] [place] [address] [place] [address] 04/24/2023 Bryce Ribeiro Bipolar 1 disorder F31.9 [...] Krysta NELSON EDOB: [birth year] (37 yo F)Acc No.[id number]:04/24/2023 Patient:?Krysta Nelson :1985???Age:37 Y???Sex:Female Address:[address] [id number] * Refills? Refill clonazePAM Tablet, 1 MG, Orally, 270, 1/2 tablet in the morning, and 1 tablet midday, and 1 tablet in the evening, As directed, 90 days, Refills=0 * true * Date:? Generated for Vamshi damico/Roc/Jamey on:?10/17/2024 06:32 PM EDT
--- OUTSIDE RECORDS SUMMARY | 2024-10-17 18:32 | XMS_ITS ---
[place] [address] Care Team Providers Care Rehabilitation Supervisor Name Role Phone Elsy Pat Primary Care Provider REASON FOR VISIT RE Pending referral to Psychiatry Encounters Encounter Location [place] [address] 04/28/2023 Elsy Cabral Plan Of Treatment No Information Progress Notes * Krysta NELSON EDOB: [birth year] (37 yo F)Acc No.[id number]:04/28/2023 Patient:?Krysta Nelson :1985???Age:37 Y???Sex:Female Address:[address] [place] [address] * true * Date:? Generated for Kevini margaux/Roc/eTransmitting on:?10/17/2024 06:32 PM EDT
--- OUTSIDE RECORDS SUMMARY | 2024-10-17 18:32 | XMS_ITS | Clinical Summary ---
Author Organization [facility] [address] [facility] l[address] Address [address] [place] [address] Phone Care Team Providers Care Yard Demurrage Clerk Name Role Phone Catherine Jamison MD Primary Care Provider [phone] Allergies Active Allergy Reactions Criticality Noted Date [...] Overview (06/23/2024): behavioral health through [facility] [place]; Edie Lyons (psych) GERD (gastroesophageal reflux disease) [...] 07/20/2024 09/05/2024 Overview (09/01/2024): 1. [facility] site: [facility]: [address] [place] [address] ([phone]) 2. Delivery site: [facility] 3. Mobile Mommas: No 4. Dating criteria: [...] Description 09/05/2024 Telephone Obstetrics [place] [address] Melinda Hodge CNM transfer care 09/01/2024 Telephone Obstetrics and Gynecology - [address] [phone] Marium Jackson [place] 08/12/2024 Telephone Obstetrics and Gynecology [facility] [place] [address] [place] [address] Melinda Hodge CNM Problem 08/09/2024 Telephone Obstetrics [facility] Gy[facility]cology - [place] [address] [place] [address] Melinda Hodge CNM 08/03/2024 Telephone Obstetrics and Gynecology [facility] [place] [address] [place] [address] Melinda Hodge CNM Transitional Care Management; Incoming Call 07/22/2024 3:00 PM EST Clinical Support Obstetrics and Gynecology - [address] [phone] Encounter for supervision of normal first in first trimester (Primary Dx); Primigravida of advanced maternal age in first trimester; Marijuana smoker from Last 3 Months Immunizations Name Administration Dates Next Due Pfizer SARS-CoV-2 COVID-19, mRNA, LNP-S, preservative free 07/25/2021,12/22/2020,12/01/2020 Tdap Tetanus diptheria acell ular pertussis (Boostrix; Adacel) 7yo and older 03/25/2021 Surgical History Surgery Date Site/Laterality Comments COLONOSCOPY PROCEDURE: HISTORICAL COLONOSCOPY OTHER SURGICAL HISTORY PROCEDURE: ID ESOPHAGOSCOPY FLEXIBLE TRANSORAL DIAGNOSTIC WISDOM TOOTH EXTRACTION PROCEDURE: HISTORICAL WISDOM TEETH EXTRACTION UPPER GASTROINTESTINAL ENDOSCOPY 12/08/2018 PROCEDURE: UPPER GI ENDOSCOPY/EXAM; COMMENT: negative, biopsy pending OVARIAN CYST REMOVAL 02/2020 PROCEDURE: ID OVARIAN CYSTECTOMY UNI/BI; COMMENT: laparoscopic, Eppsteiner, large follicular cyst and torsion Medical History Medical History Date Comments GERD (gastroesophageal reflu x disease) DX:GERD (gastroesophageal re flux disease) PUD (peptic ulcer disease) DX:PU D (peptic ulcer disease) IBS (irritable bowel syndrome) D X:IBS (irritable bowel syndrome) Bipolar 1 disorder (CMS/HCC) DX: Bipolar 1 disorder (HCC); COMMENT: behavioral health through [employer], Merlyn Lyons (psych) Migraines 04/27/2018 DX:Migraines Family History [...] Upcoming Encounters Date Type Department Care Team ([facility] Contact Info) Description 01/06/2025 2:00 PM EDT Office Visit Adult Medicine [address] [place] [address] Catherine Jamison MD [address] [place] [address] Health Maintenance Due Date Last Done Comments [...] age to complete this topic Meningococcal B Vaccine Aged Out No l onger eligible based on patient's age to complete [...] Procedure Name Priority Date/Time Associated Diagnosis Comments EXTERNAL CLINICAL LAB 09/12/2024 HORIZON 14, [place] Routine 08/31/2024 3: 53 [...] supervision of normal first in first trimester LIPID PANEL Routine 04/05/2024 HM HPV Routine 04/02/2021 from Last 3 Months or Most Recently Relevant to Health Maintenance Results * External clinical lab (09/12/2024) [facility] LAB BLOOD ORDERABLES Fin al Result * Horizon 14 (08/31/2024 3:51 PM EST) Only the most recent of2 resultswithin the time period is included. Blood Venous blood specimen / Unknown us Melinda Hodge [facility] LAB BLOOD ORDERABLES Final Result * Panorama test (08/26/2024 11:58 AM EST) Blood Venous blood specimen / Unknown Melinda Hodge [facility] LAB BLOOD ORDERABLES Final Result * Hepatitis C antibody (08/22/2024 10:35 AM EST) Pathologist [facility] Hepatitis C Antibody Negative Negative LAB CHEMISTRY METHOD 08/22/2024 12:49 PM EST [facility] Blood Venous blood specimen / Unknown Venipuncture / Unknown 08/22/2024 10:35 AM EST 08/22/2024 10:35 AM EST Melinda Hodge [facility] BLOOD ORDERABLES Final Result [facility] [address] [place] [address], [place] [phone] * HIV 1,2 antibody, p24 antigen with reflex to differentiation (08/22/2024 10:35 AM EST) [facility] HIV Combo AB/AG Negative Negative LAB CHEMISTRY METHOD 08/22/2024 12:50 PM EST [facility] Blood Venous blood specimen / [...] CDC recommendation for HIV screening. us Melinda Hodge [facility] BLOOD ORDERABLES Final Result Performing Organization Address [facility] Co de Phone Number [facility] [address] [place] [address], [place] [phone] * Hepatitis B surface antigen with reflex to confirmation (08/22/2024 10:35 AM EST) [facility] Hepatitis B Surface Ag Negative Negative LAB CHEMISTRY METHOD 08/22/2024 12:22 PM EST [facility] Blood Venous blood specimen / Unknown Venipuncture / Unknown 08/22/2024 10:35 AM EST 08/22/2024 10:35 AM EST [facility] - 08/22/2024 12:22 PM EST Over the counter supplements containing high doses of biotin may interfere with this assay. ??If interference is suspected, patients shoud be retested after refraining from biotin supplements for 72 hours. us Melinda Hodge [facility] BLOOD ORDERABLES Final Result Performing Organization Address [facility]/ZIP Co de Phone Number [facility] [address] [place] [address], [place] [phone] * Treponema pallidum antibody with reflex to RPR and particle agglutination (08/22/2024 10:35 AM EST) Pathologist [facility] T. Pallidum Antibodies Negative Negative LAB CHEMISTRY METHOD 08/22/2024 12:21 PM [facility] Blood Venous blood specimen / Unknown Venipuncture / Unknown 08/22/2024 10:35 AM EST 08/22/2024 10:35 AM EST [facility] BLOOD ORDERABLES Final Result [facility] [address] [place] [address], * Venipuncture charge (08/22/2024 10:35 AM EST) [facility] Extra Tube Hold for add-ons. 08/22/2024 12:[address] [facility] Comment:Auto resulted. Blood Venous blood specimen / Unknown Venipuncture / Unknown 08/22/2024 10:35 AM EST 08/22/2024 10:35 AM EST us Melinda Hodge [facility] BLOOD ORDERABLES Final Result [facility] ([place] [place], * Drug abuse screen expanded with reflex confirmation, urine (08/22/2024 10:35 AM EST) Pathologist [facility] Amphetamine Screen, Ur Negative Negative LAB CHEMISTRY METHOD 08/22/2024 12:46 PM [facility] Comment:Certain OTC medicati ons containing ephedrine, phenylephrine, pseudoephedrine and phenylpropanolamine can cause false positive results. Barbiturate Screen, Ur Negative Negative LAB CHEMISTRY METHOD 08/22/2024 12:46 PM [facility] Benzodiazepine Screen, Ur Negative Negative LAB CHEMISTRY METHOD 08/22/2024 12:46 PM [facility] Cocaine Screen, Ur Negative Negative LAB CHEMISTRY METHOD 08/22/2024 12:46 PM EST [facility] Opiate Screen, Ur Negative Negative LAB CHEMISTRY METHOD 08/22/2024 12:46 PM EST [facility] Cannabinoid (THC) Screen, Ur Negative Negative LAB CHEMISTRY METHOD 08/22/2024 12:46 PM EST [facility] Comment:Specimens from patie nts taking pantoprazole sodium (Protonix) have been shown to produce false positive results. Fentanyl, Ur Negative Negative LAB CHEMISTRY METHOD 08/22/2024 12:46 PM EST [facility] Oxycodone Screen, Ur Negative Negative [...] AUTOMATICALLY SENT FOR ALTERNATE METHOD CONFIRMATION* Melinda HOLLIS LAB URINE ORDERABLES Final Result [facility] [address] [place] [address], * (ABNORMAL) CBC auto differential (08/22/2024 10:35 AM EST) WBC 8.8 4.8 - 10.8 K/mcL LAB HEMETOLOGY METHOD 08/22/2024 11:31 AM [facility] RBC 4.30 3.80 - 4.80 M/mcL LAB HEMETOLOGY METHOD 08/22/2024 11:31 AM [facility] Hemoglobin 13.3 11.5 - 16.0 g/dL LAB HEMETOLOGY METHOD 08/22/2024 11:31 AM [facility] Hematocrit 40.3 35.0 - 47.0 % LAB HEMETOLOGY METHOD 08/22/2024 11:31 AM [facility] MCV 94.2 79.0 - 98.0 FL LAB HEMETOLOGY METHOD 08/22/2024 11:31 AM [facility] MCH 31.1 27.0 - 32.0 pcg LAB HEMETOLOGY METHOD 08/22/2024 11:31 AM [facility] MCHC 33.0 32.0 - 37.0 g/dL LAB HEMETOLOGY METHOD 08/22/2024 11:31 AM [facility] RDW 12.9 11.0 - 15.0 [...] METHOD 08/22/2024 11:31 AM [facility] Blood Venous blood specimen / Unknown Venipuncture / Unknown 08/22/2024 10:35 AM EST 08/22/2024 10:35 AM EST us Melinda Hodge [facility] BLOOD ORDERABLES Final Result [facility] [address] [place] [address], [place] [phone] * Rubella antibody IgG (08/22/2024 10:35 AM EST) Rubella IgG Quant 20.8 >=10.0 I Unit/mL LAB CHEMISTRY METHOD 08/22/2024 12:27 PM EST [facility] Rubella IgG Antibody Interp Positive Positive LAB CHEMISTRY METHOD 08/22/2024 12:27 PM EST [facility] Blood Venous blood specimen / Unknown Venipuncture / Unknown 08/22/2024 10:35 AM EST 08/22/2024 10:35 AM EST [facility] BLOOD ORDERABLES Final Result [facility] [address] [place] [address], [place] [phone] * Type and screen (08/22/2024 10:35 AM EST) ABO Group O 08/22/2024 12:27 PM EST [facility] Rh Type Positive 08/22/2024 12:27 PM EST [facility] Antibody Screen Negative 08/22/2024 12:27 PM EST [facility] Blood Venous blood specimen / Unknown Venipuncture / Unknown 08/22/2024 10:35 AM EST 08/22/2024 10:35 AM EST us Melinda Hodge [facility] BLOOD BANK TEST ORDERAB LES Final Result [facility] [address] [place] [address], [place] [phone] * Culture urine (08/22/2024 10:35 AM EST) Urine Urine specimen obtained by clean catch procedure / Unknown Non-blood Collection / Unknown 08/22/2024 10:35 AM EST 08/22/2024 10:35 AM EST [facility] - 08/24/2024 12:41 PM EST COLONY COUNT: ??<1,000 CFU/ML Beta Strep Group B noted. The presence of a low colony count of Beta Strep Group B may have clinical significance in women. us Melinda Hodge CNM LAB MICROBIOLOGY - GENERAL ORDERABLES Final Result Performing Organization Address City/[facility]/ZIP Co de Phone Number [facility] [address] [place] [address], * Varicella zoster antibody IgG (08/22/2024 10:35 AM EST) [facility] Varicella IgG Positive Positive LAB CHEMISTRY METHOD 08/22/2024 1:45 PM EST [facility] Varicella Zoster IgG 5.15 >=1.00 S/CO LAB CHEMISTRY METHOD 08/22/2024 1:45 PM EST [facility] Blood Venous blood specimen / Unknown Venipuncture / Unknown 08/22/2024 10:35 AM EST 08/22/2024 10:35 AM EST [facility] - 08/22/2024 1:45 PM EST Interpretation >= 1.00 S/CO is considered to be consistent with Immunity us Melinda HOLLIS LAB BLOOD ORDERABLES Final Result [facility] [address] [place] [address], * Lipid panel (04/05/2024) [facility] LDL/HDL Ratio 2 0 - 4 Triglycerides 106 0 - 150 mg/dL Cholesterol 187 0 - 200 mg/dL HDL 79 >=40 mg/dL LDL Cholesterol 87 0 - 100 mg/dL Blood Venous blood specimen / Unknown Historical Provider LAB BLOOD ORDERABLES Parris l Result * Cervical Cancer Screening: HPV (04/02/2021) Pathologist [facility] Cervical Cancer Screening: HPV negative, abstracted Historical Provider HEALTH MAINTENANCE Final Result from Last 3 Months or Most Recently Relevant to Health Maintenance Insurance [facility] Care Teams Yard Demurrage Clerk Relationship Specialty Start Date End Date Catherine Jamison MD [address] [place] [id number] PCP - General Internal Medicine 07/15/24
== END 2024-10-17 16:21 | disposition home or self-care (01) ==
PROVIDERS: PCP Internal Medicine; Visit Provider Nurse Practitioner Family
DX: Z13.9 Encounter for screening, unspecified (principal); J06.9 Acute upper respiratory infection, unspecified

== ENCOUNTER 2024-10-17 15:55 | Outpatient (REF) | payer OTHER, SELFPAY ==
--- OUTSIDE RECORDS SUMMARY | 2024-10-17 18:41 | XMS_ITS | Patient Health Record ---
Author Organization [facility] [place] [address] Care Team Providers Care Satellite Dish Technician Name Role Phone Elsy Pat Primary Care Provider [phone] Jose L ANP-C, Tete Hammonds Allergies Allergen (clinical drug ingredient) Drug/Non Drug Allergy documented on EMR Reaction Allergy Type Onset Date Status aripiprazole ARIPiprazole weight gain Drug Allergy Active gabapentin Gabapentin zombie Drug Allergy Activ e lithium carbonate Colbert Carbonate became suicidal Drug All ergy Active [...] Vaccine Route Administration Date Status Comme nts Pfizer Covid Vaccine # 1 Unknown 07/25/2021 Administere d Tdap (Private) IM Intramuscular 09/10/2022 Administered Social History Tobacco Use: Social History Observation Description Date Details (start date - stop date) Unknown Tobacco Use/Smoking Question Answer Notes Are you a Uses tobacco in other forms Alcohol Screen (Audit-C) Question Answer Notes Did you have a drink containing alcohol in the p ast year? 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) Active confirmed Problem 118605798 Hot flashes (R23.2) Active confirmed Problem 740563981 Panic disorder [episodic paroxysmal anxiety] (F41.0) Active confirmed Problem 216920230 Nightmares (F51.5) Active confirmed Problem 23929725 Anorexia nervosa with bulimia (F50.02) Active confirmed Problem Urinary tract infectious disease (66267021) UTI symptoms (R39.9) Active confirmed Problem Dysphagia (19907903) Dysphagia (R13.10) Active confirmed Problem 841096888 Urine test negative (Z32.02) Active confirmed Problem Bipolar disorder (06611619) Bipolar disease, chronic (F31.9) Active confirmed Problem History of eating disorder (0642803321828 01) History of eating disorder (Z86.59) Active confirmed Problem 30877029 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 [address] 11/12/2023 Tete Domingo Plan Of Treatment Future Test Test Name Order Date [id number] 03/04/2022 CBC AUTO DIFF (REFLEX TO MANUAL) 022 Comprehensive Metabolic Panel(CMP) 03/04 Thyroid Stimulating Hormone (TSH) 2021 Hemoglobin A1c 03/04/2022 Lipid Profile 03/04/2022 Hepatitis B Surface Ab (Q) (AHBs ) 05/24 Measles (Rubeola) Antibody IgG Quantiferon -TB Gold (site incubated) Varicella Zoster IgG Antibody 05/24/2022 Rubella Antibodies, IgG 05/24/2022 Mumps Virus IgG Antibody 05/24/2022 [id number]-4-Jqnfbxmjvwu 08/28/2022 Thyroid Stimulating Hormone (TSH) 2022 Lipid Profile 08/28/2022 Thyroid Stimulating Hormone (TSH) 2022 Insurance Providers Payer Name Payer Address Payer Phone Subscriber Number Group Number Insured Name Patient Relationship to Insured Coverage Start Date Coverage End Date [employer] [place] [address] [place] [address] [id number] Krysta Nelson Self - patient is the insured 2 Medications Administered Medication Instructions Date of Administration Dosage Notes [place] 05/30/2022 Medical (General) History Medical History History ICD Code hx of 7cm cyst right ovary IBS, GERD bipolar 1 HPV #16 migraine with aura Surgical History Surgery Date(Month/Year) [place] Teeth Extraction cyst removed from rt ovary 03/19/2020 Hospitalization History Reason Date(Month/Year) psychiatric hospitalizations for bipolar 1 in [place], last hospitalization in [place] was 07/2022
[2024-10-18 11:25] LABS: Influenza A PCR NEGATIVE (Negative); Influenza B PCR NEGATIVE (Negative); Resp Syncy Virus RNA Qual PCR NEGATIVE (Negative); SARS COV2 PCR INHOUSE NEGATIVE (Negative)
== END 2024-10-17 15:56 | disposition home or self-care (01) ==
LOC: HO.LAB 15:55
PROVIDERS: Nurse Practitioner Family; PCP Internal Medicine
DX: J06.9 Acute upper respiratory infection, unspecified (principal)
CPT/HCPCS: 0241U; 87880; 99212